=== PATIENT | female | born 1980 | race Caucasian/White ===

== ENCOUNTER 2016-06-13 07:46 | Emergency (ER) | payer BC, OTHER ==
[2016-06-13] MEDS ORDERED: KETOROLAC 30 MG/ML VIAL (J1885) As Ordered ONE (08:30)
[2016-06-13] MEDS ORDERED: ONDANSETRON 4MG/2ML VIAL (J2405) As Ordered ONE (08:30)
[2016-06-13 08:34] LABS: BASO # 0.1 K/mm3 (0.0-0.2); BASO % 1.4 % (0.0-1.0); EOS # 0.5 K/mm3 (0.0-0.50); EOS % 5.4 % (0.0-3.0); LARGE UNSTAINED CELL # 0.1 K/mm3 (0.0-0.4); LARGE UNSTAINED CELL % 1.1 % (0.0-4.0); LYMPH # 1.7 K/mm3 (1.5-4.5); LYMPH % 17.6 % (24.0-44.0); MEAN CORPUSCULAR HEMOGLOBIN 29.3 pg (27.0-33.0); MEAN CORPUSCULAR HGB CONC 33.3 g/dl (32.0-36.5); MEAN CORPUSCULAR VOLUME 88.2 fl (80.0-96.0); MONO # 0.4 K/mm3 (0.0-0.8); MONO % 4.5 % (0.0-5.0); NEUTROPHILS # 6.3 K/mm3 (1.8-7.7); PLATELET COUNT, AUTOMATED 280 k/mm3 (150-450); RED CELL DISTRIBUTION WIDTH 12.9 % (11.5-14.5)
[2016-06-13 08:58] LABS: ALBUMIN 3.5 GM/DL (3.2-5.2); ALBUMIN/GLOBULIN RATIO 0.81 (1.00-1.93); ALKALINE PHOSPHATASE 104 U/L (45-117); ALT/SGPT 73 U/L (12-78); AMYLASE 38 U/L (25-115); ANION GAP 9 MEQ/L (8-16); AST/SGOT 33 U/L (15-37); BILIRUBIN,DIRECT < 0.1 MG/DL (0.0-0.2); BILIRUBIN,TOTAL 0.3 MG/DL (0.2-1.0); BLOOD UREA NITROGEN 8 MG/DL (7-18); CALCIUM LEVEL 8.5 MG/DL (8.5-10.1); CARBON DIOXIDE LEVEL 25 MEQ/L (21-32); CHLORIDE LEVEL 107 MEQ/L (98-107); CREATININE FOR GFR 1.01 MG/DL (0.55-1.02); GLOMERULAR FILTRATION RATE > 60.0 (>60); GLUCOSE, FASTING 185 MG/DL (70-105); POTASSIUM SERUM 4.1 MEQ/L (3.5-5.1); SODIUM LEVEL 141 MEQ/L (136-145); TOTAL PROTEIN 7.8 GM/DL (6.4-8.2)
--- NOTE | 2016-06-13 09:33 | REP ---
Clinical: Left flank pain. Findings: There appears to be mild left hydroureteronephrosis and subtle periureteral stranding without obstructing calculus, but with 2 mm calcification identified in the dependent portion of the bladder (image 137). Findings most likely represent a recently passed ureteral stone and should be correlated with symptoms. The bilateral kidneys, ureters, and bladder are otherwise normal for noncontrast evaluation. Liver, spleen, pancreas, gallbladder, bilateral adrenal glands are normal for noncontrast exam. The enteric system including terminal ileum and appendix are normal. Pelvis demonstrates normal uterus / adnexa. No pelvic fluid or ascites. No obvious adenopathy. Abdominal aorta without aneurysm. No free air. Musculoskeletal structures are intact. Lung bases are clear. Impression: Findings described above suggest recently passed 2 mm left ureteral calculus now identified in the bladder. Signed by Jaden Narayanan MD 06/13/2016 09:25 A
[2016-06-13] MEDS ORDERED: PHENAZOPYRIDINE 100 MG TAB As Ordered ONE (10:05)
[2016-06-13] MEDS ORDERED: TAMSULOSIN 0.4 MG CAP As Ordered ONE (10:05)
[2016-06-13] MEDS ORDERED: CIPROFLOXACIN 500 MG TAB As Ordered ONE (10:05)
--- NOTE | 2016-06-13 10:24 | EDDOCDS ---
Nurse's Notes [facility] Name: Jayne Magana Age: 35 yrs Sex: Female : 1980 Arrival Date: 06/13/2016 Time: 07:46 Bed I4 / M4 Private MD: Ryan Portillo Diagnosis: Urinary tract infection, site not specified;Calculus of kidney-Left; 2mm calculus in bladder at time of CT;Elevated blood glucose level-185 today per CMP results Presentation: 06/13 07:51 Presenting complaint: Patient states: Pt presents with c/o left flank pain radiating dls into lower back since 5am pt states she is under tx for ear infection. Acute neurological deficits are not present. Mechanism of Injury: No Mechanism of Injury. Adult Sepsis Screening: The patient does not have new or worsening altered mentation. Patient's respiratory rate is less than 22. Systolic blood pressure is greater than 100. Patient has a qSOFA score of 0- Negative Sepsis Screen. Suicide/Homicide risk assessment- the patient denies having any suicidal and/or homicidal ideations and does not present with any other emotional, behavioral or mental health complaints. Status: Patient is not a service greeter or dependent. Transition of care: patient was not received from another setting of care. 07:51 Acuity: COLLEEN Level 3 dls 07:51 Method Of Arrival: Walkin/Carried/Asstd dls Triage Assessment: 07:55 General: Appears uncomfortable, Behavior is cooperative. Pain: Pain currently is 8 out dls of 10 on a pain scale. HIV screening NA for this visit Offered previously. 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 Cefuroxime Oral 500 mg twice a day 2. chivo biotics daily - PMHx: Asthma; - PSHx: ; wisdom teeth removed; - Social history: Smoking status: Patient/guardian denies using No barriers to communication noted, The patient speaks fluent Vietnamese. - Family history: Not pertinent. - : The pt / caregiver states he / she is not on anticoagulants. Home medication list is obtained from the patient. - Exposure Risk Screening:: None identified. Screenin:48 Screening information is obtained from the patient. Fall risk: No risks identified. hs1 Assistance ADL's: requires no assistance with activities of daily living. Abuse/DV Screen: The patient / caregiver reports he/she is: not in a situation that causes fear, pain or injury. Nutritional screening: No deficits noted. Advance Directives: There is no active DNR order. home support is adequate. Assessment: 08:43 General: Appears uncomfortable, Behavior is appropriate for age, cooperative. Pain: hs1 Location: posterior aspect of left lateral abdomen, left inguinal area and left iliac crest Pain currently is 8 out of 10 on a pain scale. Quality of pain is described as sharp, shooting. Cardiovascular: No deficits noted. Respiratory: No deficits noted. : Reports reports she is "not emptying all the way". Musculoskeletal: Circulation, motion, and sensation intact Range of motion intact in all extremities. 08:51 General: Pt states that she is not on control and has not been on for a while to hs1 try and have regular periods. Patient has not had a menstrual cycle for a while due to having been on control. . 09:06 General: Appears in no apparent distress, comfortable, Patient states pain decreasing, hs1 "It feels so much better". At this time patient returns from CT scan. No other needs noted. . Pain:. Vital Signs: 07:55 BP 152 / 97; Pulse 83; Resp 22; Temp 97.4(O); Pulse Ox 97% ; Height 5 ft. 2 in. (157.48 dls cm) (R); Pain 8/10; 08:10 Weight 138.35 kg (M); jrd 09:52 BP 122 / 89; Pulse 83; Resp 18; Pulse Ox 100% ; Pain 0/10; hs1 08:10 Body Mass Index 55.78 (138.35 kg, 157.48 cm) jr Vitals: 07:55 Log In Time: June 13, 2016 at 07:44. dls ED Course: 07:46 Patient visited by Myra Kumari. mm15 07:46 Ryan Portillo is Private Physician. mm15 07:46 Patient moved to Waiting mm15 07:53 Triage Initiated dls 07:59 Patient moved to I4 / M4 jrd 08:11 Patient visited by Kavon Chapman, GEN. jrd 08:16 Jewell Rivera PA-C is PHCP. ef1 08:16 James Anderson MD is Attending Physician. ef1 08:16 Patient visited by Jewell Rivera PA-C. ef1 08:20 Inserted saline lock: 20 gauge in left antecubital area and blood collected. The hs1 patient tolerated the procedure well. 08:27 Amylase Sent. hs1 08:27 Basic Metabolic Profile Sent. hs1 08:27 CBC with Diff Sent. hs1 08:27 Lipase Sent. hs1 08:27 Liver Profile Sent. hs1 08:27 Urinalysis Sent. hs1 08:27 Urine Culture Sent. hs1 08:36 Patient visited by Kavon Chapman PCA. jrd 08:49 The patient / caregiver is instructed regarding the plan of care and ED course. hs1 09:08 Patient visited by Shelli Chatterjee RN. hs1 09:33 [facility] Payment Agreement was scanned into [employer] and attached to record. mm15 09:40 CT ABD & PELVIS: No Contrast Returned. EDMS 09:45 Patient visited by Shelli Chatterjee RN. hs1 09:58 Patient visited by Jewell Rivera PA-C. ef1 10:06 Kan Garcia is Referral Physician. ef1 10:06 Ryan Portillo is Referral Physician. ef1 10:23 Discontinued IV lock intact, bleeding controlled, pressure dressing applied, No hs1 redness/swelling at site. No procedures done that require assistance. Administered Medications: 08:50 Drug: NS 0.9% 1000 ml [sodium chloride 0.9 % intravenous solution] Route: IV; Rate: hs1 bolus; Site: left antecubital; 09:52 Follow up: BP 122 / 89; Pulse 83 bpm; Resp 18 bpm; Pulse Ox 100% ; Pain 0/10 Adult; IV hs1 Status: Completed infusion; IV Intake: 1000ml 08:50 Drug: Ondansetron 4 mg [ondansetron HCl 2 mg/mL intravenous solution (2 mL)] Route: hs1 IVP; Site: left antecubital; 09:52 Follow up: Response: Nausea is decreased hs1 08:51 Drug: ketorolac 30 mg [ketorolac 30 mg/mL (1 mL) injection solution (1 mL)] Route: IVP; hs1 Site: left antecubital; 09:52 Follow up: Response: Pain is decreased hs1 10:10 Drug: Ciprofloxacin 500 mg [ciprofloxacin 500 mg tablet (1 tabs)] Route: PO; hs1 10:10 Drug: Phenazopyridine 200 mg [phenazopyridine 100 mg tablet (2 tabs)] Route: PO; hs1 10:11 Drug: Tamsulosin 0.4 mg [tamsulosin 0.4 mg capsule (1 caps)] Route: PO; 1 Point of Care Testing: Urine : 08:35 hCG Reading: Negative; Control Reading: Positive; jrd Ranges: Intake: 09:52 IV: 1000.00ml; Total: 1000.00ml. 1 Order Results: Lab Order: Amylase; SPEC'M 06/13/16 08:24 Test: AMYLASE; Value: 38; Range: 25-115; Units: U/L; Status: F Lab Order: Basic Metabolic Profile; SPEC'M 06/13/16 08:24 Test: GLUCOSE, FASTING; Value: 185; Range: 70-105; Abnormal: Above high normal; Units: MG/DL; Status: F Test: BLOOD UREA NITROGEN; Value: 8; Range: 7-18; Units: MG/DL; Status: F Test: CREATININE FOR GFR; Value: 1.01; Range: 0.55-1.02; Units: MG/DL; Status: F Test: GLOMERULAR FILTRATION RATE; Value: > 60.0; Range: >60; Status: F Test: SODIUM LEVEL; Value: 141; Range: 136-145; Units: MEQ/L; Status: F Test: POTASSIUM SERUM; Value: 4.1; Range: 3.5-5.1; Units: MEQ/L; Status: F Test: CHLORIDE LEVEL; Value: 107; Range: 98-107; Units: MEQ/L; Status: F Test: CARBON DIOXIDE LEVEL; Value: 25; Range: 21-32; Units: MEQ/L; Status: F Test: ANION GAP; Value: 9; Range: 8-16; Units: MEQ/L; Status: F Test: CALCIUM LEVEL; Value: 8.5; Range: 8.5-10.1; Units: MG/DL; Status: F Test Note: ; Units are mL/min/1.73 m2 Chronic Kidney Disease Staging per NKF: Stage I & II GFR >=60 Normal to Mildly Decreased Stage III GFR 30-59 Moderately Decreased Stage IV GFR 15-29 Severely Decreased Stage V GFR <15 Very Little GFR Left ESRD GFR <15 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 Lab Order: CBC with Diff; SPEC'M 06/13/16 08:25 Test: WHITE BLOOD COUNT; Value: 9.0; Range: 4.0-10.0; Units: K/mm3; Status: F Test: RED BLOOD COUNT; Value: 4.89; Range: 4.00-5.40; Units: M/mm3; Status: F Test: HEMOGLOBIN; Value: 14.4; Range: 12.0-16.0; Units: g/dl; Status: F Test: HEMATOCRIT; Value: 43.2; Range: 36.0-47.0; Units: %; Status: F Test: MEAN CORPUSCULAR VOLUME; Value: 88.2; Range: 80.0-96.0; Units: fl; Status: F Test: MEAN CORPUSCULAR HEMOGLOBIN; Value: 29.3; Range: 27.0-33.0; Units: pg; Status: F Test: MEAN CORPUSCULAR HGB CONC; Value: 33.3; Range: 32.0-36.5; Units: g/dl; Status: F Test: RED CELL DISTRIBUTION WIDTH; Value: 12.9; Range: 11.5-14.5; Units: %; Status: F Test: PLATELET COUNT, AUTOMATED; Value: 280; Range: 150-450; Units: k/mm3; Status: F Test: NEUTROPHILS %; Value: 70.0; Range: 36.0-66.0; Abnormal: Above high normal; Units: %; Status: F Test: LYMPH %; Value: 17.6; Range: 24.0-44.0; Abnormal: Below low normal; Units: %; Status: F Test: MONO %; Value: 4.5; Range: 0.0-5.0; Units: %; Status: F Test: EOS %; Value: 5.4; Range: 0.0-3.0; Abnormal: Above high normal; Units: %; Status: F Test: BASO %; Value: 1.4; Range: 0.0-1.0; Abnormal: Above high normal; Units: %; Status: F Test: LARGE UNSTAINED CELL %; Value: 1.1; Range: 0.0-4.0; Units: %; Status: F Test: NEUTROPHILS #; Value: 6.3; Range: 1.8-7.7; Units: K/mm3; Status: F Test: LYMPH #; Value: 1.7; Range: 1.5-4.5; Units: K/mm3; Status: F Test: MONO #; Value: 0.4; Range: 0.0-0.8; Units: K/mm3; Status: F Test: EOS #; Value: 0.5; Range: 0.0-0.50; Units: K/mm3; Status: F Test: BASO #; Value: 0.1; Range: 0.0-0.2; Units: K/mm3; Status: F Test: LARGE UNSTAINED CELL #; Value: 0.1; Range: 0.0-0.4; Units: K/mm3; Status: F Lab Order: Lipase; SPEC'M 06/13/16 08:24 Test: LIPASE; Value: 128; Range: 73-393; Units: U/L; Status: F Lab Order: Liver Profile; SPEC'M 06/13/16 08:24 Test: AST/SGOT; Value: 33; Range: 15-37; Units: U/L; Status: F Test: ALT/SGPT; Value: 73; Range: 12-78; Units: U/L; Status: F Test: ALKALINE PHOSPHATASE; Value: 104; Range: 45-117; Units: U/L; Status: F Test: BILIRUBIN,TOTAL; Value: 0.3; Range: 0.2-1.0; Units: MG/DL; Status: F Test: BILIRUBIN,DIRECT; Value: < 0.1; Range: 0.0-0.2; Units: MG/DL; Status: F Test: TOTAL PROTEIN; Value: 7.8; Range: 6.4-8.2; Units: GM/DL; Status: F Test: ALBUMIN; Value: 3.5; Range: 3.2-5.2; Units: GM/DL; Status: F Test: ALBUMIN/GLOBULIN RATIO; Value: 0.81; Range: 1.00-1.93; Abnormal: Below low normal; Status: F Lab Order: Urinalysis; SPEC'M 06/13/16 08:25 Test: APPEARANCE, URINE; Value: HAZY; Range: CLEAR; Status: F Test: COLOR, URINE; Value: YELLOW; Range: YELLOW; Status: F Test: PH,URINE; Value: 6.0; Range: 5.0-9.0; Units: UNITS; Status: F Test: SPECIFIC GRAVITY URINE AUTO; Value: 1.021; Range: 1.002-1.035; Status: F Test: PROTEIN, URINE AUTO; Value: NEGATIVE; Range: NEGATIVE; Units: mg/dL; Status: F Test: GLUCOSE, URINE (UA) AUTO; Value: NEGATIVE; Range: NEGATIVE; Units: mg/dL; Status: F Test: KETONE, URINE AUTO; Value: NEGATIVE; Range: NEGATIVE; Units: mg/dL; Status: F Test: UROBILINOGEN, URINE AUTO; Value: 0.2; Range: 0.0-2.0; Units: mg/dL; Status: F Test: BILIRUBIN, URINE AUTO; Value: NEGATIVE; Range: NEGATIVE; Status: F Test: NITRITE, URINE AUTO; Value: NEGATIVE; Range: NEGATIVE; Status: F Test: LEUKOCYTE ESTERASE, URINE AUTO; Value: TRACE; Range: NEGATIVE; Abnormal: Above high normal; Status: F Test: BLOOD, URINE BLOOD; Value: NEGATIVE; Range: NEGATIVE; Status: F Test: WBC, URINE AUTO; Value: 4; Range: 0-3; Abnormal: Above high normal; Units: /HPF; Status: F Test: RBC, URINE AUTO; Value: 24; Range: 0-3; Abnormal: Above high normal; Units: /HPF; Status: F Test: BACTERIA, URINE AUTO; Value: NEGATIVE; Range: NEGATIVE; Status: F Test: SQUAMOUS EPITHELIAL CELL UR AU; Value: 2; Range: 0-6; Units: /HPF; Status: F Test: MUCUS, URINE; Value: SMALL; Range: NEGATIVE; Status: F Test: HYALINE CAST, URINE AUTO; Value: 0; Range: 0-1; Units: /LPF; Status: F Radiology Order: CT ABD & PELVIS: No Contrast Test: CT ABD & PELVIS: No Contrast REASON FOR EXAMINATION: Renal colic; Clinical: Left flank pain.; ; Findings:; There appears to be mild left hydroureteronephrosis and subtle periureteral; stranding without obstructing calculus, but with 2 mm calcification identified in; the dependent portion of the bladder (image 137). Findings most likely represent; a recently passed ureteral stone and should be correlated with symptoms. The; bilateral kidneys, ureters, and bladder are otherwise normal for noncontrast; evaluation.; ; Liver, spleen, pancreas, gallbladder, bilateral adrenal glands are normal for; noncontrast exam. The enteric system including terminal ileum and appendix are; normal. Pelvis demonstrates normal uterus / adnexa. No pelvic fluid or ascites.; No obvious adenopathy. Abdominal aorta without aneurysm. No free air.; Musculoskeletal structures are intact. Lung bases are clear.; ; Impression:; Findings described above suggest recently passed 2 mm left ureteral calculus now; identified in the bladder.; ; ; Signed by; Jaden Narayanan MD 06/13/2016 09:25 A; Outcome: 10:06 Discharge ordered by Provider. ef1 10:23 Discharge Assessment: Patient awake, alert and oriented x 3. No cognitive and/or hs1 functional deficits noted. Patient verbalized understanding of disposition instructions. patient administered narcotics - no. The following High Risk Discharge criteria are identified: None. Discharged to home ambulatory. Condition: stable. Discharge instructions given to patient, Instructed on discharge instructions, follow up and referral plans. medication usage, Demonstrated understanding of instructions, medications, Pt was receptive of discharge instructions/ teaching. Prescriptions given X 4. CT Study completed. Property removed. 10:23 Patient left the ED. hs1 Signatures: Dispatcher [employer] EDMS Belem Khalil, RN RN Jewell Avendano PARadhaC PARadhaC ef1 Shelli Chatterjee RN RN hs1 Myra Kumari mm15 Kavon Chapman, SILK BRUSHER SILK BRUSHER jrd MTDD
--- NOTE | 2016-06-13 10:24 | EDDOCDS ---
Physician Documentation [facility] Name: Jayne Magana Age: 35 yrs Sex: Female : 1980 Arrival Date: 06/13/2016 Time: 07:46 Bed I4 / M4 Private MD: Ryan Portillo Disposition: 06/13/16 10:06 Discharged to Home/Self Care. Impression: Urinary tract infection, site not specified, Calculus of kidney - Left; 2mm calculus in bladder at time of CT, Elevated blood glucose level - 185 today per CMP results. - Condition is Stable. - Discharge Instructions: Blood Glucose Monitoring, Adult, Kidney Stones, [id number], Urinary Tract Infection, [id number]. - Prescriptions for Cipro 500 mg Oral Tablet - take 1 tablet by ORAL route every 12 hours; 14 tablet. Pyridium 200 mg Oral Tablet - take 1 tablet by ORAL route every 8 hours for 3 days; 9 tablet. Flomax 0.4 mg Oral Capsule, Sust. Release 24 hr - take 1 capsule by ORAL route once daily 1/2 hour following the same meal each day; 30 capsule. ketorolac 10 mg Oral Tablet - take 1 tablet by ORAL route 3 times per day As needed MDD- 30mg. Up to 5 days total use.; 15 tablet. - Medication Reconciliation, Local Pharmacy Hours form. - Follow up: Kan Garcia; When: Call to arrange an appointment; Reason: Further diagnostic work-up, Recheck today's complaints, Continuance of care. Follow up: Emergency Department; Reason: Worsening of conditions. Follow up: Ryan Portillo; When: 1 - 2 days; Reason: Recheck today's complaints, Continuance of care. - Problem is new. - Symptoms have improved. Historical: - Allergies: PENICILLINS; - Home Meds: 1. Cefuroxime Oral 500 mg twice a day 2. chivo biotics daily - PMHx: Asthma; - PSHx: ; wisdom teeth removed; - Social history: Smoking status: Patient/guardian denies using No barriers to communication noted, The patient speaks fluent Indian. - Family history: Not pertinent. - : The pt / caregiver states he / she is not on anticoagulants. Home medication list is obtained from the patient. - Exposure Risk Screening:: None identified. 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 2 in. (157.48 dls cm) (R); Pain 8/10; 08:10 Weight 138.35 kg / 305.01 lbs (M); jrd 09:52 BP 122 / 89; Pulse 83; Resp 18; Pulse Ox 100% ; Pain 0/10; hs1 08:10 Body Mass Index 55.78 (138.35 kg, 157.48 cm) jrd MDM: 08:17 NS 0.9% 1000 ml IV at bolus once ordered. ef1 08:17 Ondansetron 4 mg IVP once ordered. ef1 08:17 ketorolac 30 mg IVP once ordered. ef1 08:17 IV Saline Lock ordered. ef1 08:17 Undress patient appropriately for examination ordered. ef1 08:17 UCG by Nursing ordered. ef1 08:17 Amylase Ordered. EDMS 08:17 Basic Metabolic Profile Ordered. EDMS 08:17 CBC with Diff Ordered. EDMS 08:18 Lipase Ordered. EDMS 08:18 Liver Profile Ordered. EDMS 08:18 Urinalysis Ordered. EDMS 08:18 Urine Culture Ordered. EDMS 08:18 NOTHING BY MOUTH+DIET ordered. EDMS 08:35 Misc. Nursing Order ordered. ef1 08:40 CT ABD & PELVIS: No Contrast Ordered. EDMS 08:56 CBC with Diff Reviewed. ef1 08:56 Urinalysis Reviewed. ef1 09:18 Basic Metabolic Profile Reviewed. ef1 09:18 Liver Profile Reviewed. ef1 09:18 Amylase Reviewed. ef1 09:18 Lipase Reviewed. ef1 09:26 Financial registration complete. mm15 09:33 [facility] Payment Agreement was scanned into [employer] and attached to record. mm15 09:58 CT ABD & PELVIS: No Contrast Reviewed. ef1 10:03 Ciprofloxacin 500 mg PO once ordered. ef1 10:03 Tamsulosin Extended Release 24 hour Capsule 0.4 mg PO once ordered. ef1 10:03 Phenazopyridine 200 mg PO once ordered. ef1 Point of Care Testing: Urine : 08:35 hCG Reading: Negative; Control Reading: Positive; jrd Ranges: Administered Medications: 08:50 Drug: NS 0.9% 1000 ml [sodium chloride 0.9 % intravenous solution] Route: IV; Rate: hs1 bolus; Site: left antecubital; :52 Follow up: BP 122 / 89; Pulse 83 bpm; Resp 18 bpm; Pulse Ox 100% ; Pain 0/10 Adult; IV hs1 Status: Completed infusion; IV Intake: 1000ml 08:50 Drug: Ondansetron 4 mg [ondansetron HCl 2 mg/mL intravenous solution (2 mL)] Route: hs1 IVP; Site: left antecubital; Follow up: Response: Nausea is decreased hs1 08:51 Drug: ketorolac 30 mg [ketorolac 30 mg/mL (1 mL) injection solution (1 mL)] Route: IVP; hs1 Site: left antecubital; Follow up: Response: Pain is decreased hs1 10:10 Drug: Ciprofloxacin 500 mg [ciprofloxacin 500 mg tablet (1 tabs)] Route: PO; hs1 10:10 Drug: Phenazopyridine 200 mg [phenazopyridine 100 mg tablet (2 tabs)] Route: PO; hs1 10:11 Drug: Tamsulosin 0.4 mg [tamsulosin 0.4 mg capsule (1 caps)] Route: PO; hs1 Signatures: Dispatcher [employer] Belem Teresa, RN RN Jewell Avendano, PA-C PA-C ef1 Shelli Chatterjee RN RN hs1 Myra Kumari mm15 The chart was reviewed and I authenticate all verbal orders and agree with the evaluation and treatment provided.Attachments: 09:33 [facility] Payment Agreement mm15 MTDD
--- NOTE | 2016-06-15 11:24 | EDDOCDS ---
Nurse's Notes [facility] Name: Jayne Magana Age: 35 yrs Sex: Female : 1980 Arrival Date: 06/13/2016 Time: 07:46 Bed I4 / M4 Private MD: Ryan Portillo Diagnosis: Urinary tract infection, site not specified;Calculus of kidney-Left; 2mm calculus in bladder at time of CT;Elevated blood glucose level-185 today per CMP results Presentation: 06/13 07:51 Presenting complaint: Patient states: Pt presents with c/o left flank pain radiating dls into lower back since 5am pt states she is under tx for ear infection. Acute neurological deficits are not present. Mechanism of Injury: No Mechanism of Injury. Adult Sepsis Screening: The patient does not have new or worsening altered mentation. Patient's respiratory rate is less than 22. Systolic blood pressure is greater than 100. Patient has a qSOFA score of 0- Negative Sepsis Screen. Suicide/Homicide risk assessment- the patient denies having any suicidal and/or homicidal ideations and does not present with any other emotional, behavioral or mental health complaints. Status: Patient is not a patient services representative or dependent. Transition of care: patient was not received from another setting of care. 07:51 Acuity: COLLEEN Level 3 dls 07:51 Method Of Arrival: Walkin/Carried/Asstd dls Triage Assessment: 07:55 General: Appears uncomfortable, Behavior is cooperative. Pain: Pain currently is 8 out dls of 10 on a pain scale. HIV screening NA for this visit Offered previously. 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 Cefuroxime Oral 500 mg twice a day 2. chivo biotics daily - PMHx: Asthma; - PSHx: ; wisdom teeth removed; - Social history: Smoking status: Patient/guardian denies using No barriers to communication noted, The patient speaks fluent South Sudanese. - Family history: Not pertinent. - : The pt / caregiver states he / she is not on anticoagulants. Home medication list is obtained from the patient. - Exposure Risk Screening:: None identified. Screenin:48 Screening information is obtained from the patient. Fall risk: No risks identified. hs1 Assistance ADL's: requires no assistance with activities of daily living. Abuse/DV Screen: The patient / caregiver reports he/she is: not in a situation that causes fear, pain or injury. Nutritional screening: No deficits noted. Advance Directives: There is no active DNR order. home support is adequate. Assessment: 08:43 General: Appears uncomfortable, Behavior is appropriate for age, cooperative. Pain: hs1 Location: posterior aspect of left lateral abdomen, left inguinal area and left iliac crest Pain currently is 8 out of 10 on a pain scale. Quality of pain is described as sharp, shooting. Cardiovascular: No deficits noted. Respiratory: No deficits noted. : Reports reports she is "not emptying all the way". Musculoskeletal: Circulation, motion, and sensation intact Range of motion intact in all extremities. 08:51 General: Pt states that she is not on control and has not been on for a while to hs1 try and have regular periods. Patient has not had a menstrual cycle for a while due to having been on control. . 09:06 General: Appears in no apparent distress, comfortable, Patient states pain decreasing, hs1 "It feels so much better". At this time patient returns from CT scan. No other needs noted. . Pain:. Vital Signs: 07:55 BP 152 / 97; Pulse 83; Resp 22; Temp 97.4(O); Pulse Ox 97% ; Height 5 ft. 2 in. (157.48 dls cm) (R); Pain 8/10; 08:10 Weight 138.35 kg (M); jrd 09:52 BP 122 / 89; Pulse 83; Resp 18; Pulse Ox 100% ; Pain 0/10; hs1 08:10 Body Mass Index 55.78 (138.35 kg, 157.48 cm) jr Vitals: 07:55 Log In Time: June 13, 2016 at 07:44. dls ED Course: 07:46 Patient visited by Myra Kumari. mm15 07:46 Ryan Portillo is Private Physician. mm15 07:46 Patient moved to Waiting mm15 07:53 Triage Initiated dls 07:59 Patient moved to I4 / M4 jrd 08:11 Patient visited by Kavon Chapman, GEN. jrd 08:16 Jewell Rivera PA-C is PHCP. ef1 08:16 James Anderson MD is Attending Physician. ef1 08:16 Patient visited by Jewell Rivera PA-C. ef1 08:20 Inserted saline lock: 20 gauge in left antecubital area and blood collected. The hs1 patient tolerated the procedure well. 08:27 Amylase Sent. hs1 08:27 Basic Metabolic Profile Sent. hs1 08:27 CBC with Diff Sent. hs1 08:27 Lipase Sent. hs1 08:27 Liver Profile Sent. hs1 08:27 Urinalysis Sent. hs1 08:27 Urine Culture Sent. hs1 08:36 Patient visited by Kavon Chapman PCA. jrd 08:49 The patient / caregiver is instructed regarding the plan of care and ED course. hs1 09:08 Patient visited by Shelli Chatterjee RN. hs1 09:33 [facility] Payment Agreement was scanned into [employer] and attached to record. mm15 09:40 CT ABD & PELVIS: No Contrast Returned. EDMS 09:45 Patient visited by Shelli Chatterjee RN. hs1 09:58 Patient visited by Jewell Rivera PA-C. ef1 10:06 Kan Garcia is Referral Physician. ef1 10:06 Ryan Portillo is Referral Physician. ef1 10:23 Discontinued IV lock intact, bleeding controlled, pressure dressing applied, No hs1 redness/swelling at site. No procedures done that require assistance. 10:27 Patient name changed from Jayne\\S\\S\\S\\Magana\\S\\ to Jayne\\S\\Susanna\\S\\Magana. EDMS 11:55 T-Sheet-- Draft Copy was scanned into [employer] and attached to record. [facility] 06/14 13:08 Radiology Report was scanned into [employer] and attached to record. gb Administered Medications: 06/13 08:50 Drug: NS 0.9% 1000 ml [sodium chloride 0.9 % intravenous solution] Route: IV; Rate: hs1 bolus; Site: left antecubital; 09:52 Follow up: BP 122 / 89; Pulse 83 bpm; Resp 18 bpm; Pulse Ox 100% ; Pain 0/10 Adult; IV hs1 Status: Completed infusion; IV Intake: 1000ml 08:50 Drug: Ondansetron 4 mg [ondansetron HCl 2 mg/mL intravenous solution (2 mL)] Route: hs1 IVP; Site: left antecubital; 09:52 Follow up: Response: Nausea is decreased hs1 08:51 Drug: ketorolac 30 mg [ketorolac 30 mg/mL (1 mL) injection solution (1 mL)] Route: IVP; hs1 Site: left antecubital; 09:52 Follow up: Response: Pain is decreased hs1 10:10 Drug: Ciprofloxacin 500 mg [ciprofloxacin 500 mg tablet (1 tabs)] Route: PO; hs1 10:10 Drug: Phenazopyridine 200 mg [phenazopyridine 100 mg tablet (2 tabs)] Route: PO; hs1 10:11 Drug: Tamsulosin 0.4 mg [tamsulosin 0.4 mg capsule (1 caps)] Route: PO; 1 Point of Care Testing: Urine : 08:35 hCG Reading: Negative; Control Reading: Positive; jrd Ranges: Intake: 09:52 IV: 1000.00ml; Total: 1000.00ml. [facility] Order Results: Lab Order: Amylase; SPEC'M 06/13/16 08:24 Test: AMYLASE; Value: 38; Range: 25-115; Units: U/L; Status: F Lab Order: Basic Metabolic Profile; SPEC'M 06/13/16 08:24 Test: GLUCOSE, FASTING; Value: 185; Range: 70-105; Abnormal: Above high normal; Units: MG/DL; Status: F Test: BLOOD UREA NITROGEN; Value: 8; Range: 7-18; Units: MG/DL; Status: F Test: CREATININE FOR GFR; Value: 1.01; Range: 0.55-1.02; Units: MG/DL; Status: F Test: GLOMERULAR FILTRATION RATE; Value: > 60.0; Range: >60; Status: F Test: SODIUM LEVEL; Value: 141; Range: 136-145; Units: MEQ/L; Status: F Test: POTASSIUM SERUM; Value: 4.1; Range: 3.5-5.1; Units: MEQ/L; Status: F Test: CHLORIDE LEVEL; Value: 107; Range: 98-107; Units: MEQ/L; Status: F Test: CARBON DIOXIDE LEVEL; Value: 25; Range: 21-32; Units: MEQ/L; Status: F Test: ANION GAP; Value: 9; Range: 8-16; Units: MEQ/L; Status: F Test: CALCIUM LEVEL; Value: 8.5; Range: 8.5-10.1; Units: MG/DL; Status: F Test Note: ; Units are mL/min/1.73 m2 Chronic Kidney Disease Staging per NKF: Stage I & II GFR >=60 Normal to Mildly Decreased Stage III GFR 30-59 Moderately Decreased Stage IV GFR 15-29 Severely Decreased Stage V GFR <15 Very Little GFR Left ESRD GFR <15 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 Lab Order: CBC with Diff; SPEC'M 06/13/16 08:25 Test: WHITE BLOOD COUNT; Value: 9.0; Range: 4.0-10.0; Units: K/mm3; Status: F Test: RED BLOOD COUNT; Value: 4.89; Range: 4.00-5.40; Units: M/mm3; Status: F Test: HEMOGLOBIN; Value: 14.4; Range: 12.0-16.0; Units: g/dl; Status: F Test: HEMATOCRIT; Value: 43.2; Range: 36.0-47.0; Units: %; Status: F Test: MEAN CORPUSCULAR VOLUME; Value: 88.2; Range: 80.0-96.0; Units: fl; Status: F Test: MEAN CORPUSCULAR HEMOGLOBIN; Value: 29.3; Range: 27.0-33.0; Units: pg; Status: F Test: MEAN CORPUSCULAR HGB CONC; Value: 33.3; Range: 32.0-36.5; Units: g/dl; Status: F Test: RED CELL DISTRIBUTION WIDTH; Value: 12.9; Range: 11.5-14.5; Units: %; Status: F Test: PLATELET COUNT, AUTOMATED; Value: 280; Range: 150-450; Units: k/mm3; Status: F Test: NEUTROPHILS %; Value: 70.0; Range: 36.0-66.0; Abnormal: Above high normal; Units: %; Status: F Test: LYMPH %; Value: 17.6; Range: 24.0-44.0; Abnormal: Below low normal; Units: %; Status: F Test: MONO %; Value: 4.5; Range: 0.0-5.0; Units: %; Status: F Test: EOS %; Value: 5.4; Range: 0.0-3.0; Abnormal: Above high normal; Units: %; Status: F Test: BASO %; Value: 1.4; Range: 0.0-1.0; Abnormal: Above high normal; Units: %; Status: F Test: LARGE UNSTAINED CELL %; Value: 1.1; Range: 0.0-4.0; Units: %; Status: F Test: NEUTROPHILS #; Value: 6.3; Range: 1.8-7.7; Units: K/mm3; Status: F Test: LYMPH #; Value: 1.7; Range: 1.5-4.5; Units: K/mm3; Status: F Test: MONO #; Value: 0.4; Range: 0.0-0.8; Units: K/mm3; Status: F Test: EOS #; Value: 0.5; Range: 0.0-0.50; Units: K/mm3; Status: F Test: BASO #; Value: 0.1; Range: 0.0-0.2; Units: K/mm3; Status: F Test: LARGE UNSTAINED CELL #; Value: 0.1; Range: 0.0-0.4; Units: K/mm3; Status: F Lab Order: Lipase; SPEC' 06/13/16 08:24 Test: LIPASE; Value: 128; Range: 73-393; Units: U/L; Status: F Lab Order: Liver Profile; SPEC' 06/13/16 08:24 Test: AST/SGOT; Value: 33; Range: 15-37; Units: U/L; Status: F Test: ALT/SGPT; Value: 73; Range: 12-78; Units: U/L; Status: F Test: ALKALINE PHOSPHATASE; Value: 104; Range: 45-117; Units: U/L; Status: F Test: BILIRUBIN,TOTAL; Value: 0.3; Range: 0.2-1.0; Units: MG/DL; Status: F Test: BILIRUBIN,DIRECT; Value: < 0.1; Range: 0.0-0.2; Units: MG/DL; Status: F Test: TOTAL PROTEIN; Value: 7.8; Range: 6.4-8.2; Units: GM/DL; Status: F Test: ALBUMIN; Value: 3.5; Range: 3.2-5.2; Units: GM/DL; Status: F Test: ALBUMIN/GLOBULIN RATIO; Value: 0.81; Range: 1.00-1.93; Abnormal: Below low normal; Status: F Lab Order: Urinalysis; SPEC'M 06/13/16 08:25 Test: APPEARANCE, URINE; Value: HAZY; Range: CLEAR; Status: F Test: COLOR, URINE; Value: YELLOW; Range: YELLOW; Status: F Test: PH,URINE; Value: 6.0; Range: 5.0-9.0; Units: UNITS; Status: F Test: SPECIFIC GRAVITY URINE AUTO; Value: 1.021; Range: 1.002-1.035; Status: F Test: PROTEIN, URINE AUTO; Value: NEGATIVE; Range: NEGATIVE; Units: mg/dL; Status: F Test: GLUCOSE, URINE (UA) AUTO; Value: NEGATIVE; Range: NEGATIVE; Units: mg/dL; Status: F Test: KETONE, URINE AUTO; Value: NEGATIVE; Range: NEGATIVE; Units: mg/dL; Status: F Test: UROBILINOGEN, URINE AUTO; Value: 0.2; Range: 0.0-2.0; Units: mg/dL; Status: F Test: BILIRUBIN, URINE AUTO; Value: NEGATIVE; Range: NEGATIVE; Status: F Test: NITRITE, URINE AUTO; Value: NEGATIVE; Range: NEGATIVE; Status: F Test: LEUKOCYTE ESTERASE, URINE AUTO; Value: TRACE; Range: NEGATIVE; Abnormal: Above high normal; Status: F Test: BLOOD, URINE BLOOD; Value: NEGATIVE; Range: NEGATIVE; Status: F Test: WBC, URINE AUTO; Value: 4; Range: 0-3; Abnormal: Above high normal; Units: /HPF; Status: F Test: RBC, URINE AUTO; Value: 24; Range: 0-3; Abnormal: Above high normal; Units: /HPF; Status: F Test: BACTERIA, URINE AUTO; Value: NEGATIVE; Range: NEGATIVE; Status: F Test: SQUAMOUS EPITHELIAL CELL UR AU; Value: 2; Range: 0-6; Units: /HPF; Status: F Test: MUCUS, URINE; Value: SMALL; Range: NEGATIVE; Status: F Test: HYALINE CAST, URINE AUTO; Value: 0; Range: 0-1; Units: /LPF; Status: F Lab Order: Urine Culture; SPEC'M 06/13/16 08:25 Test: URINE CULTURE; Value: URINE CULTURE RESULT NO GROWTH CLINICAL SIGNIFICANCE 1 ORGANISM; Status: F Radiology Order: CT ABD & PELVIS: No Contrast Test: CT ABD & PELVIS: No Contrast REASON FOR EXAMINATION: Renal colic; Clinical: Left flank pain.; ; Findings:; There appears to be mild left hydroureteronephrosis and subtle periureteral; stranding without obstructing calculus, but with 2 mm calcification identified in; the dependent portion of the bladder (image 137). Findings most likely represent; a recently passed ureteral stone and should be correlated with symptoms. The; bilateral kidneys, ureters, and bladder are otherwise normal for noncontrast; evaluation.; ; Liver, spleen, pancreas, gallbladder, bilateral adrenal glands are normal for; noncontrast exam. The enteric system including terminal ileum and appendix are; normal. Pelvis demonstrates normal uterus / adnexa. No pelvic fluid or ascites.; No obvious adenopathy. Abdominal aorta without aneurysm. No free air.; Musculoskeletal structures are intact. Lung bases are clear.; ; Impression:; Findings described above suggest recently passed 2 mm left ureteral calculus now; identified in the bladder.; ; ; Signed by; Jaden Narayanan MD 06/13/2016 09:25 A; Outcome: 10:06 Discharge ordered by Provider. ef1 10:23 Discharge Assessment: Patient awake, alert and oriented x 3. No cognitive and/or hs1 functional deficits noted. Patient verbalized understanding of disposition instructions. patient administered narcotics - no. The following High Risk Discharge criteria are identified: None. Discharged to home ambulatory. Condition: stable. Discharge instructions given to patient, Instructed on discharge instructions, follow up and referral plans. medication usage, Demonstrated understanding of instructions, medications, Pt was receptive of discharge instructions/ teaching. Prescriptions given X 4. CT Study completed. Property removed. 10:23 Patient left the ED. hs1 Signatures: Dispatcher [employer] EDMS Belem Khalil RN RN dls Mai Lopez, Reg Reg Jewell Brady, PA-C PA-C ef1 Shelli Chatterjee RN RN hs1 Myra Kumari mm15 Kavon Chapman, ASSOCIATE EDITOR ASSOCIATE EDITOR jrd Jennifer Maldonado Chart Complete MTDD
--- NOTE | 2016-06-15 11:24 | EDDOCDS ---
Physician Documentation [facility] Name: Jayne Magana Age: 35 yrs Sex: Female : 1980 Arrival Date: 06/13/2016 Time: 07:46 Bed I4 / M4 Private MD: Ryan Portillo Disposition: 06/13/16 10:06 Discharged to Home/Self Care. Impression: Urinary tract infection, site not specified, Calculus of kidney - Left; 2mm calculus in bladder at time of CT, Elevated blood glucose level - 185 today per CMP results. - Condition is Stable. - Discharge Instructions: Blood Glucose Monitoring, Adult, Kidney Stones, [id number], Urinary Tract Infection, [id number]. - Prescriptions for Cipro 500 mg Oral Tablet - take 1 tablet by ORAL route every 12 hours; 14 tablet. Pyridium 200 mg Oral Tablet - take 1 tablet by ORAL route every 8 hours for 3 days; 9 tablet. Flomax 0.4 mg Oral Capsule, Sust. Release 24 hr - take 1 capsule by ORAL route once daily 1/2 hour following the same meal each day; 30 capsule. ketorolac 10 mg Oral Tablet - take 1 tablet by ORAL route 3 times per day As needed MDD- 30mg. Up to 5 days total use.; 15 tablet. - Medication Reconciliation, Local Pharmacy Hours form. - Follow up: Kan Garcia; When: Call to arrange an appointment; Reason: Further diagnostic work-up, Recheck today's complaints, Continuance of care. Follow up: Emergency Department; Reason: Worsening of conditions. Follow up: Ryan Portillo; When: 1 - 2 days; Reason: Recheck today's complaints, Continuance of care. - Problem is new. - Symptoms have improved. Historical: - Allergies: PENICILLINS; - Home Meds: 1. Cefuroxime Oral 500 mg twice a day 2. chivo biotics daily - PMHx: Asthma; - PSHx: ; wisdom teeth removed; - Social history: Smoking status: Patient/guardian denies using No barriers to communication noted, The patient speaks fluent Occitan. - Family history: Not pertinent. - : The pt / caregiver states he / she is not on anticoagulants. Home medication list is obtained from the patient. - Exposure Risk Screening:: None identified. 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 2 in. (157.48 dls cm) (R); Pain 8/10; 08:10 Weight 138.35 kg / 305.01 lbs (M); jrd 09:52 BP 122 / 89; Pulse 83; Resp 18; Pulse Ox 100% ; Pain 0/10; hs1 08:10 Body Mass Index 55.78 (138.35 kg, 157.48 cm) jrd MDM: 08:17 NS 0.9% 1000 ml IV at bolus once ordered. ef1 08:17 Ondansetron 4 mg IVP once ordered. ef1 08:17 ketorolac 30 mg IVP once ordered. ef1 08:17 IV Saline Lock ordered. ef1 08:17 Undress patient appropriately for examination ordered. ef1 08:17 UCG by Nursing ordered. ef1 08:17 Amylase Ordered. EDMS 08:17 Basic Metabolic Profile Ordered. EDMS 08:17 CBC with Diff Ordered. EDMS 08:18 Lipase Ordered. EDMS 08:18 Liver Profile Ordered. EDMS 08:18 Urinalysis Ordered. EDMS 08:18 Urine Culture Ordered. EDMS 08:18 NOTHING BY MOUTH+DIET ordered. EDMS 08:35 Misc. Nursing Order ordered. ef1 08:40 CT ABD & PELVIS: No Contrast Ordered. EDMS 08:56 CBC with Diff Reviewed. ef1 08:56 Urinalysis Reviewed. ef1 09:18 Basic Metabolic Profile Reviewed. ef1 09:18 Liver Profile Reviewed. ef1 09:18 Amylase Reviewed. ef1 09:18 Lipase Reviewed. ef1 09:26 Financial registration complete. mm15 09:33 [facility] Payment Agreement was scanned into [employer] and attached to record. mm15 09:58 CT ABD & PELVIS: No Contrast Reviewed. ef1 10:03 Ciprofloxacin 500 mg PO once ordered. ef1 10:03 Tamsulosin Extended Release 24 hour Capsule 0.4 mg PO once ordered. ef1 10:03 Phenazopyridine 200 mg PO once ordered. ef1 11:55 T-Sheet-- Draft Copy was scanned into [employer] and attached to record. [facility] 06/14 13:08 Radiology Report was scanned into [employer] and attached to record. Point of Care Testing: Urine : 06/13 08:35 hCG Reading: Negative; Control Reading: Positive; jrd Ranges: Administered Medications: 08:50 Drug: NS 0.9% 1000 ml [sodium chloride 0.9 % intravenous solution] Route: IV; Rate: hs1 bolus; Site: left antecubital; 09:52 Follow up: BP 122 / 89; Pulse 83 bpm; Resp 18 bpm; Pulse Ox 100% ; Pain 0/10 Adult; IV hs1 Status: Completed infusion; IV Intake: 1000ml 08:50 Drug: Ondansetron 4 mg [ondansetron HCl 2 mg/mL intravenous solution (2 mL)] Route: hs1 IVP; Site: left antecubital; 09:52 Follow up: Response: Nausea is decreased hs1 08:51 Drug: ketorolac 30 mg [ketorolac 30 mg/mL (1 mL) injection solution (1 mL)] Route: IVP; hs1 Site: left antecubital; 09:52 Follow up: Response: Pain is decreased hs1 10:10 Drug: Ciprofloxacin 500 mg [ciprofloxacin 500 mg tablet (1 tabs)] Route: PO; hs1 10:10 Drug: Phenazopyridine 200 mg [phenazopyridine 100 mg tablet (2 tabs)] Route: PO; hs1 10:11 Drug: Tamsulosin 0.4 mg [tamsulosin 0.4 mg capsule (1 caps)] Route: PO; hs1 Signatures: Dispatcher [employer] Belem Teresa RN RN dls Barnhardt, Gloria, Yoseph Reg Jewell Brady, PA-C PA-C ef1 Shelli Chatterjee RN RN hs1 Myra Kumari mm15 Jennifer Maldonado [facility] The chart was reviewed and I authenticate all verbal orders and agree with the evaluation and treatment provided.Attachments: 09:33 [facility] Payment Agreement mm15 11:55 T-Sheet-- Draft Copy [facility] Chart Complete MTDD
--- NOTE | 2016-06-15 11:24 | EDDOCDS ---
Physician Documentation [facility] Name: Jayne Magana Age: 35 yrs Sex: Female : 1980 Arrival Date: 06/13/2016 Time: 07:46 Bed I4 / M4 Private MD: Ryan Portillo Disposition: 06/13/16 10:06 Discharged to Home/Self Care. Impression: Urinary tract infection, site not specified, Calculus of kidney - Left; 2mm calculus in bladder at time of CT, Elevated blood glucose level - 185 today per CMP results. - Condition is Stable. - Discharge Instructions: Blood Glucose Monitoring, Adult, Kidney Stones, [id number], Urinary Tract Infection, [id number]. - Prescriptions for Cipro 500 mg Oral Tablet - take 1 tablet by ORAL route every 12 hours; 14 tablet. Pyridium 200 mg Oral Tablet - take 1 tablet by ORAL route every 8 hours for 3 days; 9 tablet. Flomax 0.4 mg Oral Capsule, Sust. Release 24 hr - take 1 capsule by ORAL route once daily 1/2 hour following the same meal each day; 30 capsule. ketorolac 10 mg Oral Tablet - take 1 tablet by ORAL route 3 times per day As needed MDD- 30mg. Up to 5 days total use.; 15 tablet. - Medication Reconciliation, Local Pharmacy Hours form. - Follow up: Kan Garcia; When: Call to arrange an appointment; Reason: Further diagnostic work-up, Recheck today's complaints, Continuance of care. Follow up: Emergency Department; Reason: Worsening of conditions. Follow up: Ryan Portillo; When: 1 - 2 days; Reason: Recheck today's complaints, Continuance of care. - Problem is new. - Symptoms have improved. Historical: - Allergies: PENICILLINS; - Home Meds: 1. Cefuroxime Oral 500 mg twice a day 2. chivo biotics daily - PMHx: Asthma; - PSHx: ; wisdom teeth removed; - Social history: Smoking status: Patient/guardian denies using No barriers to communication noted, The patient speaks fluent Maori. - Family history: Not pertinent. - : The pt / caregiver states he / she is not on anticoagulants. Home medication list is obtained from the patient. - Exposure Risk Screening:: None identified. 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 2 in. (157.48 dls cm) (R); Pain 8/10; 08:10 Weight 138.35 kg / 305.01 lbs (M); jrd 09:52 BP 122 / 89; Pulse 83; Resp 18; Pulse Ox 100% ; Pain 0/10; hs1 08:10 Body Mass Index 55.78 (138.35 kg, 157.48 cm) jrd MDM: 08:17 NS 0.9% 1000 ml IV at bolus once ordered. ef1 08:17 Ondansetron 4 mg IVP once ordered. ef1 08:17 ketorolac 30 mg IVP once ordered. ef1 08:17 IV Saline Lock ordered. ef1 08:17 Undress patient appropriately for examination ordered. ef1 08:17 UCG by Nursing ordered. ef1 08:17 Amylase Ordered. EDMS 08:17 Basic Metabolic Profile Ordered. EDMS 08:17 CBC with Diff Ordered. EDMS 08:18 Lipase Ordered. EDMS 08:18 Liver Profile Ordered. EDMS 08:18 Urinalysis Ordered. EDMS 08:18 Urine Culture Ordered. EDMS 08:18 NOTHING BY MOUTH+DIET ordered. EDMS 08:35 Misc. Nursing Order ordered. ef1 08:40 CT ABD & PELVIS: No Contrast Ordered. EDMS 08:56 CBC with Diff Reviewed. ef1 08:56 Urinalysis Reviewed. ef1 09:18 Basic Metabolic Profile Reviewed. ef1 09:18 Liver Profile Reviewed. ef1 09:18 Amylase Reviewed. ef1 09:18 Lipase Reviewed. ef1 09:26 Financial registration complete. mm15 09:33 [facility] Payment Agreement was scanned into [employer] and attached to record. mm15 09:58 CT ABD & PELVIS: No Contrast Reviewed. ef1 10:03 Ciprofloxacin 500 mg PO once ordered. ef1 10:03 Tamsulosin Extended Release 24 hour Capsule 0.4 mg PO once ordered. ef1 10:03 Phenazopyridine 200 mg PO once ordered. ef1 11:55 T-Sheet-- Draft Copy was scanned into [employer] and attached to record. [facility] 06/14 13:08 Radiology Report was scanned into [employer] and attached to record. Point of Care Testing: Urine : 06/13 08:35 hCG Reading: Negative; Control Reading: Positive; jrd Ranges: Administered Medications: 08:50 Drug: NS 0.9% 1000 ml [sodium chloride 0.9 % intravenous solution] Route: IV; Rate: hs1 bolus; Site: left antecubital; 09:52 Follow up: BP 122 / 89; Pulse 83 bpm; Resp 18 bpm; Pulse Ox 100% ; Pain 0/10 Adult; IV hs1 Status: Completed infusion; IV Intake: 1000ml 08:50 Drug: Ondansetron 4 mg [ondansetron HCl 2 mg/mL intravenous solution (2 mL)] Route: hs1 IVP; Site: left antecubital; 09:52 Follow up: Response: Nausea is decreased hs1 08:51 Drug: ketorolac 30 mg [ketorolac 30 mg/mL (1 mL) injection solution (1 mL)] Route: IVP; hs1 Site: left antecubital; 09:52 Follow up: Response: Pain is decreased hs1 10:10 Drug: Ciprofloxacin 500 mg [ciprofloxacin 500 mg tablet (1 tabs)] Route: PO; hs1 10:10 Drug: Phenazopyridine 200 mg [phenazopyridine 100 mg tablet (2 tabs)] Route: PO; hs1 10:11 Drug: Tamsulosin 0.4 mg [tamsulosin 0.4 mg capsule (1 caps)] Route: PO; hs1 Signatures: Dispatcher [employer] [place] Teresa RN RN dls Barnhardt, Gloria, Yoseph Reg Jewell Brady, PA-C PA-C ef1 Shelli Chatterjee RN RN hs1 Myra Kumari mm15 Jennifer Maldonado [facility] The chart was reviewed and I authenticate all verbal orders and agree with the evaluation and treatment provided.Attachments: 09:33 [facility] Payment Agreement mm15 11:55 T-Sheet-- Draft Copy [facility] Chart Complete MTDD
== END 2016-06-13 10:23 | disposition home or self-care (01) ==
LOC: M ED 07:46
DX: N20.1 Calculus of ureter (principal); N39.0 Urinary tract infection, site not specified; R73.9 Hyperglycemia, unspecified; J45.909 Unspecified asthma, uncomplicated; Z88.0 Allergy status to penicillin
CPT/HCPCS: 36415; 74176; 80048; 80076; 81001; 81025; 82150; 83690; 85025; 87086; 96361; 96374; 96375; 99284; J1885; J2405

== ENCOUNTER → 2016-07-21 | Outpatient (REF) | payer OTHER | LOC: M SMT 16:50 | PROVIDERS: ATTEND Nurse Practitioner Women's Health | DX: N20.1 Calculus of ureter (principal) ==

== ENCOUNTER → 2016-07-24 | Outpatient (CLI) | payer OTHER ==
[2016-07-24 18:03] LABS: ALBUMIN 3.6 GM/DL (3.2-5.2); ALKALINE PHOSPHATASE 95 U/L (45-117); ALT/SGPT 54 U/L (12-78); ANION GAP 11 MEQ/L (8-16); AST/SGOT 28 U/L (15-37); BILIRUBIN,TOTAL 0.3 MG/DL (0.2-1.0); BLOOD UREA NITROGEN 11 MG/DL (7-18); CALCIUM LEVEL 8.6 MG/DL (8.5-10.1); CARBON DIOXIDE LEVEL 24 MEQ/L (21-32); CHLORIDE LEVEL 105 MEQ/L (98-107); CREATININE FOR GFR 0.88 MG/DL (0.55-1.02); FREE T4 0.85 NG/DL (0.76-1.46); GLOMERULAR FILTRATION RATE > 60.0 (>60); GLUCOSE, FASTING 138 MG/DL (70-105); POTASSIUM SERUM 4.4 MEQ/L (3.5-5.1); SODIUM LEVEL 140 MEQ/L (136-145); TOTAL PROTEIN 7.2 GM/DL (6.4-8.2)
[2016-07-25 17:15] LABS: CONTROL LINE INT CTR LINE PRESENT
[2016-07-25 17:16] LABS: HIV SCRN NEGATIVE (NEGATIVE)
[2016-07-25 17:17] LABS: HIV SCRN1 NEGATIVE (NEGATIVE)
== END ==
LOC: M WUC 09:28
PROVIDERS: ATTEND Family Medicine
DX: R73.9 Hyperglycemia, unspecified (principal); Z11.3 Encounter for screening for infections with a predominantly sexual mode of transmission; E66.01 Morbid (severe) obesity due to excess calories

== ENCOUNTER → 2017-01-20 | Outpatient (CLI) | payer OTHER ==
[2017-01-20 16:47] LABS: ALBUMIN 3.5 GM/DL (3.2-5.2); ALKALINE PHOSPHATASE 67 U/L (45-117); ALT/SGPT 40 U/L (12-78); ANION GAP 9 MEQ/L (8-16); AST/SGOT 27 U/L (15-37); BILIRUBIN,TOTAL 0.2 MG/DL (0.2-1.0); BLOOD UREA NITROGEN 9 MG/DL (7-18); CALCIUM LEVEL 8.7 MG/DL (8.5-10.1); CARBON DIOXIDE LEVEL 29 MEQ/L (21-32); CHLORIDE LEVEL 104 MEQ/L (98-107); CREATININE FOR GFR 0.81 MG/DL (0.55-1.02); GLOMERULAR FILTRATION RATE > 60.0 (>60); GLUCOSE, FASTING 85 MG/DL (70-105); POTASSIUM SERUM 4.7 MEQ/L (3.5-5.1); SODIUM LEVEL 142 MEQ/L (136-145); TOTAL PROTEIN 7.4 GM/DL (6.4-8.2)
== END ==
LOC: M WUC 11:38
PROVIDERS: ATTEND Family Medicine
DX: E11.9 Type 2 diabetes mellitus without complications (principal)

== ENCOUNTER → 2017-02-01 | Outpatient (CLI) | payer OTHER ==
--- NOTE | 2017-02-01 16:45 | REP ---
Clinical: Nodule by palpation. Technique: Real time ruano scale and color evaluation using linear high frequency transducer. Findings: Directed ultrasound examination of the right neck in the supraclavicular region at the site of palpable mass demonstrates a 6 x 5 x 6 mm complex, well-circumscribed cystic ovoid structure with increased through transmission. Findings likely represent small sebaceous cyst and correlation is recommended. Impression: Ultrasound examination suggest small sebaceous cyst and correlation is recommended. Signed by Jaden Narayanan MD 02/01/2017 04:37 P
== END ==
LOC: M RAD 16:12
PROVIDERS: ATTEND Family Medicine
DX: D48.1 Neoplasm of uncertain behavior of connective and other soft tissue (principal)

== ENCOUNTER → 2017-04-12 | Outpatient (REF) | payer OTHER ==
[~2017-04-12] MED LIST: BACITAB PO; K-TA1TAB PO; PROAAER10 INH; SLOWTAB2 PO; TRI-1TAB5 PO; TRUL0.5I SC; VANC1CAP7 PO; ZYRTTAB8 PO
== END ==
LOC: M LAB REF 13:29
PROVIDERS: ATTEND Family Medicine
DX: R19.7 Diarrhea, unspecified (principal)

== ENCOUNTER 2017-04-13 00:39 | Inpatient (IN) | payer OTHER ==
[~2017-04-13] VITALS: Ht 157.5 cm; Wt 130.9 kg
[2017-04-13] MEDS ORDERED: PROAAER10 INH ×2 (01:05→04:30)
[2017-04-13] MEDS ORDERED: TRUL0.5I SC ×2 (01:05→04:30)
[2017-04-13] MEDS ORDERED: ZYRTTAB8 PO ×2 (01:05→04:30)
[2017-04-13] MEDS ORDERED: NS 1,000 ML IV ONE ×2 (01:45→04:15)
[2017-04-13] MEDS ORDERED: VANCOMYCIN ORAL SOL 250MG/5ML ORAL SYRINGE PO ONE (02:00)
[2017-04-13 02:32] LABS: BASO # 0.1 10^3/uL (0.0-0.2); BASO % 0.2 % (0.0-1.0); EOS # 0.6 10^3/uL (0.0-0.50); EOS % 2.2 % (0.0-3.0); IMMATURE GRANULOCYTE % 1.3 % (0-0); LYMPH # 1.7 10^3/uL (1.5-4.5); LYMPH % 6.3 % (24.0-44.0); MEAN CORPUSCULAR HEMOGLOBIN 29.2 pg (27.0-33.0); MEAN CORPUSCULAR HGB CONC 33.1 g/dl (32.0-36.5); MEAN CORPUSCULAR VOLUME 88.3 fl (80.0-96.0); MONO # 1.2 10^3/uL (0.0-0.8); MONO % 4.5 % (0.0-5.0); NEUTROPHILS # 23.2 10^3/uL (1.8-7.7); NEUTROPHILS % 85.5 % (36.0-66.0); PLATELET COUNT, AUTOMATED 335 10^3/uL (150-450); WHITE BLOOD COUNT 27.1 10^3/uL (4.0-10.0)
[2017-04-13 02:37] LABS: CONTROL LINE HCG INT CTR LINE PRESENT
[2017-04-13 02:43] LABS: ALBUMIN 3.2 GM/DL (3.2-5.2); ALBUMIN/GLOBULIN RATIO 0.71 (1.00-1.93); ALKALINE PHOSPHATASE 67 U/L (45-117); ALT/SGPT 20 U/L (12-78); ANION GAP 11 MEQ/L (8-16); AST/SGOT 9 U/L (7-37); BILIRUBIN,DIRECT < 0.1 MG/DL (0.0-0.2); BILIRUBIN,TOTAL 0.3 MG/DL (0.2-1.0); BLOOD UREA NITROGEN 8 MG/DL (7-18); CALCIUM LEVEL 8.2 MG/DL (8.5-10.1); CARBON DIOXIDE LEVEL 26 MEQ/L (21-32); CHLORIDE LEVEL 102 MEQ/L (98-107); GLOMERULAR FILTRATION RATE > 60.0 (>60); GLUCOSE, FASTING 133 MG/DL (70-105); POTASSIUM SERUM 3.3 MEQ/L (3.5-5.1); SODIUM LEVEL 139 MEQ/L (136-145); TOTAL PROTEIN 7.7 GM/DL (6.4-8.2)
[2017-04-13] MEDS ORDERED: ISOVUE-370 76% 100ML VIAL (Q9967) As Ordered ONE (03:07)
[2017-04-13] MEDS ORDERED: ONDANSETRON 4MG/2ML VIAL (J2405) IV ONE (03:30)
[2017-04-13] MEDS: MORPHINE 4 MG/ML 1ML SYRINGE IV PRN ×2 (03:43→04:27)
--- NOTE | 2017-04-13 04:00 | REPUSA ---
CLINICAL HISTORY: Abdominal pain. TECHNIQUE: Multiple axial, sagittal and coronal CT images were obtained through the abdomen and pelvi s after administration of oral and intravenous contrast material. COMMENTS: Comparison to prior exam performed on 06/13/2016. Fluid-filled distended stomach. Diffusely thickened proximal small bowel. 2.6 cm right ovarian cyst. The liver is moderately enlarged with decreased attenuation without mass or defect. There is no intra or extrahepatic biliary ductal dilatation. The spleen is normal. The gallbladder is within normal li mits. The pancreas is of normal contour and attenuation characteristics. There is no evidence of adre nal mass. Both kidneys demonstrate prompt and equal nephrograms. The kidneys are normal in size, shape and conf iguration. There is no evidence of renal or ureteral mass. No renal or ureteral calculi are identifie d. There is no hydroureter or hydronephrosis. No evidence for appendicitis. No evidence for small or large bowel obstruction. There is no evidence of abdominal ascites or lymphadenopathy. There is no evidence of intrinsic or extrinsic bladder mass. There is no pelvic ascites or lymphadeno chantelle. Images of the lung bases show no evidence of pleural or parenchymal mass. There are no pleural effusi ons. The bony structures are free of lytic or blastic lesions. Multilevel degenerative changes are seen in volving the thoracolumbar spine. Scattered calcifications are seen involving the aorta and major bran ches compatible with atherosclerosis. IMPRESSION: Enteritis. Gastroparesis. Right ovarian cyst. Findings not present on prior exam. Thank you for your kind referral of this patient.
[2017-04-13] MEDS ORDERED: metroNIDAZOLE 500 MG in APPROPRIATE DILUENT 1 EA IV ONE (04:15)
[2017-04-13] MEDS ORDERED: TRI-1TAB5 PO (04:30)
[2017-04-13] MEDS: NS 1,000 ML IV SCH ×2 (04:34→14:40)
[2017-04-13] MEDS ORDERED: GLUCOSE 4 GM CHEW TABLET PO PRN (04:45)
[2017-04-13] MEDS ORDERED: ONDANSETRON 4MG/2ML VIAL (J2405) IV PRN (04:45)
[2017-04-13] MEDS ORDERED: DEXTROSE 50% 50 ML SYRINGE IV PRN (04:45)
[2017-04-13] MEDS ORDERED: SODIUM CHLORIDE 0.9% 1000 ML IV ONE (04:45)
[2017-04-13] MEDS ORDERED: GLUCAGON FOR INJ 1 MG VIAL (J1610) SC PRN (04:45)
--- NOTE | 2017-04-13 06:02 | HPE ---
DATE OF ADMISSION: 04/13/2017 PRIMARY CARE PHYSICIAN: Dr. Corcoran. Patient comes in with a chief complaint of diarrhea since Tuesday. Patient notes that as of Tuesday, she began to have significant diarrhea which has continued up through Tuesday when she had episode of nausea and vomiting. She went to her primary care doctor who took samples. Patient was found to have Clostridium difficile. Patient comes in to ED for intractable diarrhea. At this point, patient no longer vomiting. Some mild nausea, however. Patient also complains of abdominal pain secondary to what she believes as per the patient is the diarrhea. Patient with other significant medical history including diabetes. Patient denies significant family history. Patient with apparent allergies to Penicillin. Patient with no previous history of Clostridium diarrhea. Patient denies any recent antibiotic use. Patient denies any recent hospitalizations. REVIEW OF SYSTEMS: On complete 10 system review, patient denies other acute problems beyond what was noted in the history of present illness. PHYSICAL EXAMINATION: Patient is awake, alert and oriented times three. Vital signs are temperature 98.0, initial pulse 104 now at 87, blood pressure 134/75, pulse oximetry 98% on room air. Patient is awake, alert and oriented times three, resting when I came in. Some mild distress secondary to patient's abdominal discomfort. Patient's head is normocephalic, atraumatic. Patient with tender obese abdomen. Good inspiratory and expiratory effort. No wheezes, rhonchi or rales at this time. S1, S2, poor auscultation most probably secondary to body habitus. Patient with good movement on four extremities. Patient ambulatory. Patient able to sit up on her own power. No obvious deformities of the back. Patient with grossly symmetric and good hearing. Patient with vision in all four quadrants. LABORATORY RESULTS: Patient's WBC 27.1, hemoglobin and hemoglobin 16.2/49.0. Chemistry shows sodium 139, elevated lactic acid 2.4, potassium 3.3, chloride 102, carbon dioxide 26, anion gap 11, BUN and creatinine is 8/0.9. Glomerular filtration rate over 60. Fasting glucose is 133. Calcium mildly decreased at 8.2. IMAGING: Abdomen and pelvic CT report shows enteritis, gastroparesis, right ovarian cyst. Findings not present in prior exam. Thank you for your kind referral of this patient. ASSESSMENT AND PLAN: Patient is a 36-year-old female with previous medical history of diabetes, comes in with episodes of diarrhea, intractable since Tuesday, found to be Clostridium positive from samples taken at patient's primary care doctor. PLAN: Patient getting oral vancomycin, however, given the gastroparesis, some concern with the ability for the vancomycin to appropriately reach the colon at this time. Therefore will add IV Flagyl in agreement with the ED doctor. If patient does not improve, may consider rectal vancomycin, however, that is not usually given as a first option. Patient receiving IV fluid bolus maintenance to be continued thereafter. Will followup lactic acid. Given the severity of the patient's condition, ie: Sepsis and low calcium and potassium most likely secondary to patient's continued diarrhea, I suspect patient will likely be here for greater than two midnights. Patient is able to eat. Will continue giving patient diet at this time, however if she begins to throw up again, will have to modify diet. Diet now: Diabetic diet. For patient's diabetes mellitus, will hold patient's home medications and start patient on insulin sliding scale for now. Deep venous thrombosis (DVT) prophylaxis at this time is not indicated. Patient is ambulatory, young without significant risk factors. Gastrointestinal (GI) prophylaxis. Patient will get IV PPIs with the understanding that PPIs do lead to an increased risk of Clostridium difficile. Nevertheless, patient does have nausea and vomiting and risk versus benefit at this time is in favor of PPIs as she is already under treatment for Clostridium difficile. Nausea and vomiting. Continue Zofran as needed. I first seen and examined the patient 04/13/2017.
[2017-04-13] MEDS: VANCOMYCIN ORAL SOL 250MG/5ML ORAL SYRINGE PO SCH ×3 (06:08→17:55)
[2017-04-13] MEDS: ALBUTEROL SULFATE 2.5 MG/0.5 ML INH NEB SOLN INH SCH ×5 (07:04→23:13)
[2017-04-13 09:15] VITALS: BP 128/89
[2017-04-13] MEDS: HumaLOG INSULIN (NovoLOG) PER UNIT SC SCH ×4 (09:53→20:24)
[2017-04-13] MEDS: PANTOPRAZOLE 20 MG TAB PO SCH (09:54)
[2017-04-13] MEDS: metroNIDAZOLE 500 MG in APPROPRIATE DILUENT 1 EA IV SCH ×3 (10:50→22:43)
[2017-04-13 14:00] VITALS: BP 135/88
--- NOTE | 2017-04-13 14:18 | ECGEPIP ---
Stationary ECG Study 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
[2017-04-13] MEDS ORDERED: PERCOCET 5MG/325MG TAB PO PRN (15:00)
[2017-04-13 22:00] VITALS: BP 135/84
[2017-04-14] MEDS: VANCOMYCIN ORAL SOL 250MG/5ML ORAL SYRINGE PO SCH ×5 (00:11→23:35)
[2017-04-14] MEDS: NS 1,000 ML IV SCH (00:34)
[2017-04-14] MEDS: metroNIDAZOLE 500 MG in APPROPRIATE DILUENT 1 EA IV SCH ×4 (04:07→22:20)
[2017-04-14] MEDS: ALBUTEROL SULFATE 2.5 MG/0.5 ML INH NEB SOLN INH SCH ×5 (04:18→23:20)
[2017-04-14 06:00] VITALS: BP 135/75
[2017-04-14 06:36] LABS: BASO % 0.3 % (0.0-1.0); EOS # 1.2 10^3/uL (0.0-0.50); EOS % 7.7 % (0.0-3.0); IMMATURE GRANULOCYTE % 2.2 % (0-0); LYMPH # 2.4 10^3/uL (1.5-4.5); LYMPH % 15.1 % (24.0-44.0); MEAN CORPUSCULAR HEMOGLOBIN 29.1 pg (27.0-33.0); MEAN CORPUSCULAR HGB CONC 32.1 g/dl (32.0-36.5); MEAN CORPUSCULAR VOLUME 90.7 fl (80.0-96.0); MONO # 0.9 10^3/uL (0.0-0.8); MONO % 5.6 % (0.0-5.0); NEUTROPHILS % 69.1 % (36.0-66.0); PLATELET COUNT, AUTOMATED 269 10^3/uL (150-450); RED CELL DISTRIBUTION WIDTH 12.6 % (11.5-14.5); WHITE BLOOD COUNT 15.9 10^3/uL (4.0-10.0)
[2017-04-14 06:57] LABS: ANION GAP 7 MEQ/L (8-16); BLOOD UREA NITROGEN 5 MG/DL (7-18); CALCIUM LEVEL 7.2 MG/DL (8.5-10.1); CARBON DIOXIDE LEVEL 26 MEQ/L (21-32); CHLORIDE LEVEL 110 MEQ/L (98-107); CREATININE FOR GFR 1.08 MG/DL (0.55-1.02); GLOMERULAR FILTRATION RATE > 60.0 (>60); GLUCOSE, FASTING 152 MG/DL (70-105); POTASSIUM SERUM 3.2 MEQ/L (3.5-5.1); SODIUM LEVEL 143 MEQ/L (136-145)
[2017-04-14] MEDS ORDERED: SODIUM CHLORIDE NASAL 0.65% SPRAY BTL (OCEAN) ONE (07:15)
[2017-04-14] MEDS ORDERED: NS 1,000 ML IV ONE ×2 (07:15→12:00)
[2017-04-14] MEDS ORDERED: CETIRIZINE (ZyrTEC) 10 MG TAB PO ONE (07:15)
[2017-04-14] MEDS ORDERED: MAG SULF 1GM/100ML (MAG RUN) 1 GM in APPROPRIATE DILUENT 1 EA IV ONE (08:00)
[2017-04-14] MEDS ORDERED: POTASSIUM CHLORIDE 10 MEQ SR TABLET PO ONE (08:00)
[2017-04-14] MEDS ORDERED: VANC1CAP7 PO (08:06)
[2017-04-14] MEDS: PANTOPRAZOLE 20 MG TAB PO SCH (08:27)
[2017-04-14] MEDS: HumaLOG INSULIN (NovoLOG) PER UNIT SC SCH ×4 (08:29→21:00)
[2017-04-14] MEDS: POTASSIUM CHLORIDE 10 MEQ SR TABLET PO SCH ×2 (09:00→22:21)
--- NOTE | 2017-04-14 11:59 | IPN ---
DATE OF VISIT: 04/14/2017 Patient complains of diffuse abdominal pain but tolerating her diet without nausea or vomiting. Patient has had diarrhea, about three times yesterday and once this morning at 3 a.m. She denies any fever or chills, chest pain, pressure or tightness. No shortness of breath, palpitations, lightheadedness or generalized weakness. Patient also complains for allergic rhinitis and some nasal congestion. Temperature 98.2, pulse 103, respiratory rate 16, blood pressure 135/75, 95% on room air, and generally patient is awake, alert, oriented times three, answering questions appropriately. Lungs are clear to auscultation. No wheezing, rales or rhonchi. Heart: S1, S2. Sinus rhythm with episodes of sinus tachycardia. Abdomen is soft, slightly tender epigastric region, lower quadrant. Extremities: No cyanosis, clubbing or any pitting edema. Laboratory data, imaging studies have been reviewed. ASSESSMENT AND PLAN: This is a 36-year-old female, no recent contact with Clostridium (C) difficile patients and not on any recent antibiotics or recent travel, does not work in hospitals, presented to the emergency room with diarrhea, found to have C difficile positive colitis. Current issues are as follows: 1. C difficile colitis. Currently receiving oral vancomycin, intravenous (IV) Flagyl due to previous complaints of nausea, vomiting. Will advance diet slowly and discontinue IV Flagyl. Patient is able to keep oral medications down. 2. Type 2 diabetes. Consistent carbohydrate diet. Sliding scale. 3. Allergic rhinitis. Continue on Zyrtec. 4. Nasal congestion. Flonase as needed and nasal spray. 5. Acute kidney injury. Continue with IV fluid hydration. 6. Electrolyte abnormalities with low potassium due to persistent diarrhea. Replenish with potassium. DISPOSITION: May discharge home in the morning.
[2017-04-14 14:00] VITALS: BP 140/62
[2017-04-14 18:43] LABS: ANION GAP 7 MEQ/L (8-16); BLOOD UREA NITROGEN 6 MG/DL (7-18); CARBON DIOXIDE LEVEL 26 MEQ/L (21-32); CHLORIDE LEVEL 113 MEQ/L (98-107); CREATININE FOR GFR 0.76 MG/DL (0.55-1.02); GLOMERULAR FILTRATION RATE > 60.0 (>60); GLUCOSE, FASTING 96 MG/DL (70-105); MAGNESIUM LEVEL 1.4 MG/DL (1.8-2.4); POTASSIUM SERUM 3.5 MEQ/L (3.5-5.1); SODIUM LEVEL 146 MEQ/L (136-145)
[2017-04-14 22:00] VITALS: BP 127/73
[2017-04-15] MEDS: ALBUTEROL SULFATE 2.5 MG/0.5 ML INH NEB SOLN INH SCH ×4 (04:00→15:21)
[2017-04-15] MEDS: metroNIDAZOLE 500 MG in APPROPRIATE DILUENT 1 EA IV SCH ×4 (05:34→21:46)
[2017-04-15] MEDS: VANCOMYCIN ORAL SOL 250MG/5ML ORAL SYRINGE PO SCH ×4 (05:35→23:56)
[2017-04-15 06:00] VITALS: BP 126/75
[2017-04-15 06:26] LABS: BASO % 0.3 % (0.0-1.0); EOS # 2.1 10^3/uL (0.0-0.50); IMMATURE GRANULOCYTE % 4.2 % (0-0); LYMPH # 2.3 10^3/uL (1.5-4.5); LYMPH % 15.7 % (24.0-44.0); MEAN CORPUSCULAR HEMOGLOBIN 29.4 pg (27.0-33.0); MEAN CORPUSCULAR HGB CONC 32.7 g/dl (32.0-36.5); MEAN CORPUSCULAR VOLUME 89.8 fl (80.0-96.0); MONO # 0.6 10^3/uL (0.0-0.8); MONO % 4.2 % (0.0-5.0); NEUTROPHILS # 9.2 10^3/uL (1.8-7.7); NEUTROPHILS % 61.6 % (36.0-66.0); PLATELET COUNT, AUTOMATED 263 10^3/uL (150-450); RED CELL DISTRIBUTION WIDTH 12.6 % (11.5-14.5); WHITE BLOOD COUNT 14.9 10^3/uL (4.0-10.0)
[2017-04-15] MEDS: MAG SULF 1GM/100ML (MAG RUN) 1 GM in APPROPRIATE DILUENT 1 EA IV SCH ×2 (06:40→08:22)
[2017-04-15 06:46] LABS: ANION GAP 7 MEQ/L (8-16); BLOOD UREA NITROGEN 4 MG/DL (7-18); CALCIUM LEVEL 7.4 MG/DL (8.5-10.1); CARBON DIOXIDE LEVEL 25 MEQ/L (21-32); CHLORIDE LEVEL 112 MEQ/L (98-107); CREATININE FOR GFR 0.76 MG/DL (0.55-1.02); GLOMERULAR FILTRATION RATE > 60.0 (>60); GLUCOSE, FASTING 111 MG/DL (70-105); MAGNESIUM LEVEL 1.5 MG/DL (1.8-2.4); POTASSIUM SERUM 3.5 MEQ/L (3.5-5.1); SODIUM LEVEL 144 MEQ/L (136-145)
[2017-04-15] MEDS ORDERED: POTASSIUM CHLORIDE 10 MEQ SR TABLET PO ONE (07:00)
[2017-04-15] MEDS: PANTOPRAZOLE 20 MG TAB PO SCH (08:21)
[2017-04-15] MEDS: HumaLOG INSULIN (NovoLOG) PER UNIT SC SCH ×4 (08:22→21:00)
[2017-04-15] MEDS ORDERED: BACITAB PO (08:36)
[2017-04-15] MEDS: POTASSIUM CHLORIDE 10 MEQ SR TABLET PO SCH ×2 (08:42→21:45)
[2017-04-15] MEDS: LACTOBACILLUS ACIDOPHILUS CAP (BACID) PO SCH ×3 (09:40→18:00)
[2017-04-15] MEDS: KCL 40MEQ in NS 1000ML 1,000 ML IV SCH ×2 (09:40→21:46)
--- NOTE | 2017-04-15 11:29 | IPN ---
DATE: 04/15/2017 The patient and examined at the bedside. The chart has been reviewed. The patient is tolerating her diet but complains of five loose bowel movements yesterday despite vancomycin and IV Flagyl. She is tolerating her diet, however, with no nausea or vomiting. No change in the abdomen. No abdominal distention. No fevers or chills. Over night, she did have an episode of dysuria yesterday but the urgency, frequency as well as dysuria have resolved today. Urinalysis (UA) was sent. VITAL SIGNS: Temperature 98.7, pulse 97, respiratory rate 18, blood pressure 126/75, 98% on room air. GENERALLY: Patient is awake, alert, oriented times three. Answers questions appropriately. LUNGS: Clear to auscultation. No wheezes, rales or rhonchi. HEART: S1, S2. Sinus rhythm. ABDOMEN: Soft. Slightly tender bilateral lower quadrants. No rebound or guarding. Positive bowel sounds. No hepatosplenomegaly. EXTREMITIES: No pitting edema. LABORATORY DATA: White count 14.9, hemoglobin 12.4, hematocrit 37.9, platelet count 263. Sodium 144, potassium 3.5, chloride 112, bicarbonate 25, BUN 4, creatinine 0.76, glucose 111, magnesium 1.5. Two sets of blood cultures are negative. CT abdomen and pelvis shows right ovarian cyst, gastroparesis and neuritis. ASSESSMENT/PLAN: This is a 36-year-old female with no past medical history. No recent contact with C difficile patient. No recent antibiotics used who presented to the emergency room with profuse diarrhea and was found to have C difficile colitis. CURRENT ISSUES: 1. C difficile colitis, community acquire: The patient is currently receiving oral vancomycin and IV Flagyl due to complaints of nausea and vomiting. The patient has been advanced in her diet. 2. Type 2 diabetes: Placed on consistent carbohydrate diet, sliding scale. 3. Allergic rhinitis on Zyrtec. 4. Nasal congestion: Flonase as needed nasal spray. 5. Acute kidney injury: Resolved with fluid hydration. 6. Electrolyte abnormality secondary to diarrhea. Potassium and magnesium has been repleted. DISPOSITION: Due to increase in the amount of diarrhea yesterday, the patient will be kept in the hospital due to severe electrolyte imbalances.
[2017-04-15] MEDS ORDERED: ALBUTEROL SULFATE 2.5 MG/0.5 ML INH NEB SOLN INH PRN (12:00)
[2017-04-15 14:00] VITALS: BP 130/82
[2017-04-15 22:00] VITALS: BP 139/85
[2017-04-16] MEDS: metroNIDAZOLE 500 MG in APPROPRIATE DILUENT 1 EA IV SCH ×2 (05:17→11:00)
[2017-04-16] MEDS: VANCOMYCIN ORAL SOL 250MG/5ML ORAL SYRINGE PO SCH ×2 (05:17→12:00)
[2017-04-16 05:46] LABS: BASO # 0.1 10^3/uL (0.0-0.2); BASO % 0.7 % (0.0-1.0); EOS # 3.3 10^3/uL (0.0-0.50); EOS % 19.7 % (0.0-3.0); IMMATURE GRANULOCYTE % 4.5 % (0-0); LYMPH # 2.4 10^3/uL (1.5-4.5); LYMPH % 14.4 % (24.0-44.0); MEAN CORPUSCULAR HEMOGLOBIN 29.3 pg (27.0-33.0); MEAN CORPUSCULAR HGB CONC 32.6 g/dl (32.0-36.5); MONO # 0.6 10^3/uL (0.0-0.8); MONO % 3.7 % (0.0-5.0); NEUTROPHILS # 9.5 10^3/uL (1.8-7.7); PLATELET COUNT, AUTOMATED 273 10^3/uL (150-450); RED CELL DISTRIBUTION WIDTH 12.5 % (11.5-14.5); WHITE BLOOD COUNT 16.6 10^3/uL (4.0-10.0)
[2017-04-16 06:00] VITALS: BP 139/74
[2017-04-16 06:00] LABS: ANION GAP 7 MEQ/L (8-16); BLOOD UREA NITROGEN 3 MG/DL (7-18); CALCIUM LEVEL 8.4 MG/DL (8.5-10.1); CARBON DIOXIDE LEVEL 25 MEQ/L (21-32); CHLORIDE LEVEL 109 MEQ/L (98-107); CREATININE FOR GFR 0.66 MG/DL (0.55-1.02); GLOMERULAR FILTRATION RATE > 60.0 (>60); GLUCOSE, FASTING 110 MG/DL (70-105); SODIUM LEVEL 141 MEQ/L (136-145)
[2017-04-16 06:17] LABS: POTASSIUM SERUM 4.3 MEQ/L (3.5-5.1)
[2017-04-16] MEDS ORDERED: MAG SULF 1GM/100ML (MAG RUN) 1 GM in APPROPRIATE DILUENT 1 EA IV ONE ×2 (06:45→08:30)
[2017-04-16 07:07] LABS: MAGNESIUM LEVEL 1.7 MG/DL (1.8-2.4)
[2017-04-16] MEDS: HumaLOG INSULIN (NovoLOG) PER UNIT SC SCH ×2 (07:30→12:00)
[2017-04-16] MEDS ORDERED: K-TA1TAB PO (09:23)
[2017-04-16] MEDS ORDERED: SLOWTAB2 PO (09:23)
[2017-04-16] MEDS: LACTOBACILLUS ACIDOPHILUS CAP (BACID) PO SCH ×2 (10:14→12:30)
[2017-04-16] MEDS: POTASSIUM CHLORIDE 10 MEQ SR TABLET PO SCH (10:15)
[2017-04-16] MEDS: PANTOPRAZOLE 20 MG TAB PO SCH (10:15)
[2017-04-16 14:00] VITALS: BP 131/78
--- NOTE | 2017-04-16 16:26 | DSES ---
DATE OF ADMISSION: 04/13/2017 DATE OF DISCHARGE: 04/16/2017 PRIMARY CARE PROVIDER: Dr. Corcoran PRIMARY DISCHARGE DIAGNOSIS: Clostridium (C) difficile colitis. DISCHARGE MEDICATIONS: - vancomycin 250 mg by mouth every 6 hours - Bacid one tablet by mouth twice a day - potassium 20 mEq by mouth twice a day - magnesium one tablet by mouth twice a day FOLLOWUP ISSUES: The patient is to have a repeat basic metabolic panel and magnesium on 04/18/2017 to be sent to Dr. Corcoran. 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 No recent antibiotic use or exposure to C diff. The patient was found to have a white count of 27,000. CT of the abdomen and pelvis shows enteritis, gastroparesis, right ovarian cyst. Due to severe nausea, the patient was given intravenous Flagyl and oral vancomycin with improvement in white count from 27,000 to 15,000 on discharge. Her bowel movements have decreased from five to three to zero. She is able to tolerate a diet, which was fully advanced. Glucose levels were 96 to 152. She had episodes of low magnesium and low potassium, which were supplemented. The patient is discharged in stable condition to followup with her primary care provider as an outpatient. LABORATORY DATA ON DISCHARGE: White count 15.6, hemoglobin 12, hematocrit 39, platelet count 273. Sodium 141, potassium 4.2, chloride 109, bicarbonate 25, BUN 3, creatinine 0.66, glucose of 110, magnesium of 1.7. Two sets of blood cultures with no growth after 72 hours. On 04/13/2017, C diff positive. Imaging studies on 04/13/2017: CT of the abdomen and pelvis with enteritis, gastroparesis, right ovarian cyst. Time spent on discharge 30 minutes.
== END 2017-04-16 15:30 | disposition home or self-care (01) | DRG 372 ==
LOC: M ED 00:39 → M ED INP 04:34 → M MS5PR 08:50
PROVIDERS: ADMIT Internal Medicine; ATTEND General Practice
DX: A04.72 Enterocolitis due to Clostridium difficile, not specified as recurrent (principal); N17.9 Acute kidney failure, unspecified; Z79.899 Other long term (current) drug therapy; E11.9 Type 2 diabetes mellitus without complications; N83.201 Unspecified ovarian cyst, right side; J30.9 Allergic rhinitis, unspecified; E87.6 Hypokalemia

== ENCOUNTER → 2017-04-18 | Outpatient (CLI) | payer OTHER ==
[2017-04-18 15:01] LABS: ANION GAP 8 MEQ/L (8-16); BLOOD UREA NITROGEN 9 MG/DL (7-18); CALCIUM LEVEL 9.3 MG/DL (8.5-10.1); CARBON DIOXIDE LEVEL 30 MEQ/L (21-32); CHLORIDE LEVEL 100 MEQ/L (98-107); CREATININE FOR GFR 0.87 MG/DL (0.55-1.02); GLOMERULAR FILTRATION RATE > 60.0 (>60); GLUCOSE, FASTING 93 MG/DL (70-105); MAGNESIUM LEVEL 2.3 MG/DL (1.8-2.4); SODIUM LEVEL 138 MEQ/L (136-145)
[2017-04-18 15:06] LABS: POTASSIUM SERUM 5.2 MEQ/L (3.5-5.1)
== END ==
LOC: M SMT 10:40
PROVIDERS: ATTEND General Practice
DX: E87.6 Hypokalemia (principal); E83.42 Hypomagnesemia; A04.72 Enterocolitis due to Clostridium difficile, not specified as recurrent

== ENCOUNTER → 2017-04-18 | Outpatient (CLI) | payer OTHER ==
[2017-04-18 14:37] LABS: BASO # 0.2 10^3/uL (0.0-0.2); BASO % 0.9 % (0.0-1.0); EOS # 3.7 10^3/uL (0.0-0.50); EOS % 18.9 % (0.0-3.0); LYMPH # 3.2 10^3/uL (1.5-4.5); LYMPH % 16.2 % (24.0-44.0); MEAN CORPUSCULAR HEMOGLOBIN 29.1 pg (27.0-33.0); MEAN CORPUSCULAR HGB CONC 33.1 g/dl (32.0-36.5); MEAN CORPUSCULAR VOLUME 88.1 fl (80.0-96.0); MONO # 0.9 10^3/uL (0.0-0.8); MONO % 4.6 % (0.0-5.0); NEUTROPHILS % 55.4 % (36.0-66.0); PLATELET COUNT, AUTOMATED 351 10^3/uL (150-450); RED CELL DISTRIBUTION WIDTH 12.3 % (11.5-14.5); WHITE BLOOD COUNT 19.8 10^3/uL (4.0-10.0)
[2017-04-18 14:53] LABS: ALBUMIN 3.2 GM/DL (3.2-5.2); ALBUMIN/GLOBULIN RATIO 0.84 (1.00-1.93); ALKALINE PHOSPHATASE 78 U/L (45-117); ALT/SGPT 27 U/L (12-78); ANION GAP 8 MEQ/L (8-16); AST/SGOT 17 U/L (7-37); BILIRUBIN,TOTAL 0.2 MG/DL (0.2-1.0); BLOOD UREA NITROGEN 9 MG/DL (7-18); CALCIUM LEVEL 9.3 MG/DL (8.5-10.1); CARBON DIOXIDE LEVEL 27 MEQ/L (21-32); CHLORIDE LEVEL 102 MEQ/L (98-107); CHOLESTEROL LEVEL 185 MG/DL (<200); CREATININE FOR GFR 0.84 MG/DL (0.55-1.02); GLOMERULAR FILTRATION RATE > 60.0 (>60); GLUCOSE, FASTING 97 MG/DL (70-105); POTASSIUM SERUM 4.9 MEQ/L (3.5-5.1); SODIUM LEVEL 137 MEQ/L (136-145); TRIGLYCERIDES LEVEL 142 MG/DL (<150)
== END ==
LOC: M SMT 10:44
PROVIDERS: ATTEND Family Medicine
DX: E11.9 Type 2 diabetes mellitus without complications (principal)

== ENCOUNTER → 2017-05-29 | Outpatient (REF) | payer OTHER | LOC: M LAB REF 11:01 | DX: J06.9 Acute upper respiratory infection, unspecified (principal); R19.7 Diarrhea, unspecified ==

== ENCOUNTER 2017-05-31 09:48 | Inpatient (IN) | payer OTHER ==
[2017-05-31] MEDS: ONDANSETRON 4MG/2ML VIAL (J2405) IV (10:30)
[2017-05-31] MEDS: NS 1,000 ML IV (10:30)
[2017-05-31] MEDS: MORPHINE 2 MG/ML 1ML SYRINGE IV (11:01)
[2017-05-31 11:09] LABS: BASO # 0.1 10^3/uL (0.0-0.2); BASO % 0.3 % (0.0-1.0); EOS % 0.1 % (0.0-3.0); HEMATOCRIT 47.5 % (36.0-47.0); HEMOGLOBIN 15.8 g/dl (12.0-16.0); IMMATURE GRANULOCYTE # 0.1 10^3/uL (0-0); IMMATURE GRANULOCYTE % 0.5 % (0-0); LYMPH # 0.3 10^3/uL (1.5-4.5); LYMPH % 1.9 % (24.0-44.0); MEAN CORPUSCULAR HEMOGLOBIN 29.5 pg (27.0-33.0); MEAN CORPUSCULAR HGB CONC 33.3 g/dl (32.0-36.5); MEAN CORPUSCULAR VOLUME 88.6 fl (80.0-96.0); MONO # 0.3 10^3/uL (0.0-0.8); MONO % 1.8 % (0.0-5.0); NEUTROPHILS # 16.8 10^3/uL (1.8-7.7); NEUTROPHILS % 95.4 % (36.0-66.0); PLATELET COUNT, AUTOMATED 367 10^3/uL (150-450); RED BLOOD COUNT 5.36 10^6/uL (4.00-5.40); RED CELL DISTRIBUTION WIDTH 12.1 % (11.5-14.5); WHITE BLOOD COUNT 17.6 10^3/uL (4.0-10.0)
[2017-05-31 11:14] LABS: KETONE, URINE AUTO RFX TRACE mg/dL (NEGATIVE); MUCUS, URINE RFX SMALL (NEGATIVE); NITRITE, URINE AUTO RFX NEGATIVE (NEGATIVE); RBC, URINE AUTO RFX 6 /HPF (0-3); SPECIFIC GRAVITY UR AUTO RFX 1.023 (1.002-1.035); SQUAM EPITHELIAL CELL UR AURFX 2 /HPF (0-6); WBC, URINE AUTO RFX 4 /HPF (0-3)
[2017-05-31 11:15] LABS: LEUKOCYTE ESTERASE UR AUTO RFX TRACE (NEGATIVE)
[2017-05-31 11:27] LABS: ALBUMIN 3.5 GM/DL (3.2-5.2); ALKALINE PHOSPHATASE 67 U/L (45-117); ALT/SGPT 24 U/L (12-78); ANION GAP 9 MEQ/L (8-16); AST/SGOT 18 U/L (7-37); BILIRUBIN,DIRECT < 0.1 MG/DL (0.0-0.2); BILIRUBIN,TOTAL 0.4 MG/DL (0.2-1.0); BLOOD UREA NITROGEN 14 MG/DL (7-18); CARBON DIOXIDE LEVEL 25 MEQ/L (21-32); CHLORIDE LEVEL 107 MEQ/L (98-107); CREATININE FOR GFR 0.91 MG/DL (0.55-1.02); GLOMERULAR FILTRATION RATE > 60.0 (>60); GLUCOSE, FASTING 133 MG/DL (70-105); LIPASE 276 U/L (73-393); POTASSIUM SERUM 4.3 MEQ/L (3.5-5.1); SODIUM LEVEL 141 MEQ/L (136-145); TOTAL PROTEIN 7.9 GM/DL (6.4-8.2)
[2017-05-31] MEDS ORDERED: ISOVUE-370 76% 100ML VIAL (Q9967) As Ordered (11:36)
[2017-05-31] MEDS: HEPARIN SOD (PORCINE) 5000 UNITS/ML VIAL SC ×2 (14:00→21:58)
[2017-05-31] MEDS ORDERED: IPRATROPIUM 0.5MG/ALBUTEROL 2.5MG INH SOL UD 3ML (DUONEB)(J7620) NEB (15:30)
[2017-05-31] MEDS ORDERED: ONDANSETRON 4MG/2ML VIAL (J2405) IV (15:30)
[2017-05-31] MEDS: KCL 20MEQ in NS 1000ML 1,000 ML IV (16:00)
[2017-05-31] MEDS: LACTOBACILLUS ACIDOPHILUS CAP (BACID) PO ×2 (16:00→21:58)
[2017-05-31] MEDS: VANCOMYCIN ORAL SOL 250MG/5ML ORAL SYRINGE PO (17:54)
[2017-06-01] MEDS: VANCOMYCIN ORAL SOL 250MG/5ML ORAL SYRINGE PO ×2 (00:45→06:31)
[2017-06-01] MEDS: KCL 20MEQ in NS 1000ML 1,000 ML IV ×3 (00:45→16:11)
[2017-06-01] MEDS: HEPARIN SOD (PORCINE) 5000 UNITS/ML VIAL SC ×3 (06:31→21:02)
[2017-06-01 07:04] LABS: HEMATOCRIT 43.5 % (36.0-47.0); HEMOGLOBIN 14.3 g/dl (12.0-16.0); MEAN CORPUSCULAR HEMOGLOBIN 29.1 pg (27.0-33.0); MEAN CORPUSCULAR HGB CONC 32.9 g/dl (32.0-36.5); MEAN CORPUSCULAR VOLUME 88.4 fl (80.0-96.0); PLATELET COUNT, AUTOMATED 323 10^3/uL (150-450); RED BLOOD COUNT 4.92 10^6/uL (4.00-5.40); RED CELL DISTRIBUTION WIDTH 12.2 % (11.5-14.5); WHITE BLOOD COUNT 8.3 10^3/uL (4.0-10.0)
[2017-06-01 07:21] LABS: ANION GAP 8 MEQ/L (8-16); BLOOD UREA NITROGEN 8 MG/DL (7-18); CARBON DIOXIDE LEVEL 22 MEQ/L (21-32); CHLORIDE LEVEL 109 MEQ/L (98-107); CREATININE FOR GFR 0.92 MG/DL (0.55-1.02); GLOMERULAR FILTRATION RATE > 60.0 (>60); GLUCOSE, FASTING 127 MG/DL (70-105); POTASSIUM SERUM 4.1 MEQ/L (3.5-5.1); SODIUM LEVEL 139 MEQ/L (136-145)
[2017-06-01] MEDS: LACTOBACILLUS ACIDOPHILUS CAP (BACID) PO ×3 (08:37→21:01)
[2017-06-01] MEDS: IBUPROFEN 400 MG TAB PO (21:01)
[2017-06-02] MEDS: KCL 20MEQ in NS 1000ML 1,000 ML IV ×2 (00:49→08:00)
[2017-06-02] MEDS: HEPARIN SOD (PORCINE) 5000 UNITS/ML VIAL SC (05:36)
[2017-06-02 07:33] LABS: HEMATOCRIT 41.4 % (36.0-47.0); HEMOGLOBIN 13.5 g/dl (12.0-16.0); MEAN CORPUSCULAR HGB CONC 32.6 g/dl (32.0-36.5); PLATELET COUNT, AUTOMATED 264 10^3/uL (150-450); RED BLOOD COUNT 4.65 10^6/uL (4.00-5.40); RED CELL DISTRIBUTION WIDTH 12.2 % (11.5-14.5)
[2017-06-02 07:54] LABS: ANION GAP 7 MEQ/L (8-16); BLOOD UREA NITROGEN 5 MG/DL (7-18); CARBON DIOXIDE LEVEL 25 MEQ/L (21-32); CHLORIDE LEVEL 108 MEQ/L (98-107); CREATININE FOR GFR 0.67 MG/DL (0.55-1.02); GLOMERULAR FILTRATION RATE > 60.0 (>60); GLUCOSE, FASTING 105 MG/DL (70-105); SODIUM LEVEL 140 MEQ/L (136-145)
[2017-06-02] MEDS: LACTOBACILLUS ACIDOPHILUS CAP (BACID) PO (09:44)
== END 2017-06-02 10:35 | disposition home or self-care (01) | DRG 392 ==
LOC: M PED 06-01 14:55 → M ED 09:48 → M ED INP 15:30
DX: A08.4 Viral intestinal infection, unspecified (principal); J45.909 Unspecified asthma, uncomplicated; R73.03 Prediabetes; Z79.899 Other long term (current) drug therapy; Z88.0 Allergy status to penicillin

== ENCOUNTER 2017-07-21 00:42 | Emergency (ER) | payer OTHER ==
[2017-07-21 03:45] LABS: BASO % 0.2 % (0.0-1.0); EOS # 0.4 10^3/uL (0.0-0.50); EOS % 2.4 % (0.0-3.0); HEMATOCRIT 43.6 % (36.0-47.0); HEMOGLOBIN 14.3 g/dl (12.0-16.0); IMMATURE GRANULOCYTE % 0.3 % (0-3.0); LYMPH # 1.3 10^3/uL (1.5-4.5); LYMPH % 8.2 % (24.0-44.0); MEAN CORPUSCULAR HEMOGLOBIN 28.5 pg (27.0-33.0); MEAN CORPUSCULAR HGB CONC 32.8 g/dl (32.0-36.5); MEAN CORPUSCULAR VOLUME 86.9 fl (80.0-96.0); MONO # 0.6 10^3/uL (0.0-0.8); MONO % 3.8 % (0.0-5.0); NEUTROPHILS # 13.4 10^3/uL (1.8-7.7); NEUTROPHILS % 85.1 % (36.0-66.0); PLATELET COUNT, AUTOMATED 350 10^3/uL (150-450); RED BLOOD COUNT 5.02 10^6/uL (4.00-5.40); RED CELL DISTRIBUTION WIDTH 12.1 % (11.5-14.5); WHITE BLOOD COUNT 15.7 10^3/uL (4.0-10.0)
[2017-07-21 04:07] LABS: ALBUMIN 3.5 GM/DL (3.2-5.2); ALKALINE PHOSPHATASE 61 U/L (45-117); ALT/SGPT 34 U/L (12-78); ANION GAP 9 MEQ/L (8-16); AST/SGOT 17 U/L (7-37); BILIRUBIN,DIRECT < 0.1 MG/DL (0.0-0.2); BILIRUBIN,TOTAL 0.3 MG/DL (0.2-1.0); BLOOD UREA NITROGEN 11 MG/DL (7-18); CALCIUM LEVEL 8.7 MG/DL (8.5-10.1); CARBON DIOXIDE LEVEL 26 MEQ/L (21-32); CHLORIDE LEVEL 105 MEQ/L (98-107); CREATININE FOR GFR 0.84 MG/DL (0.55-1.30); GLOMERULAR FILTRATION RATE > 60.0 (>60); GLUCOSE, FASTING 119 MG/DL (70-100); LIPASE 242 U/L (73-393); POTASSIUM SERUM 4.3 MEQ/L (3.5-5.1); SODIUM LEVEL 140 MEQ/L (136-145); TOTAL PROTEIN 7.4 GM/DL (6.4-8.2)
== END 2017-07-21 06:25 | disposition home or self-care (01) ==
LOC: M ED 00:42
DX: R19.7 Diarrhea, unspecified (principal); E11.9 Type 2 diabetes mellitus without complications; J45.909 Unspecified asthma, uncomplicated; Z79.899 Other long term (current) drug therapy; Z86.19 Personal history of other infectious and parasitic diseases; Z88.0 Allergy status to penicillin
CPT/HCPCS: 83690

== ENCOUNTER → 2017-07-31 | Outpatient (CLI) | payer OTHER ==
[2017-07-31 18:14] LABS: ANION GAP 7 MEQ/L (8-16); BLOOD UREA NITROGEN 8 MG/DL (7-18); CALCIUM LEVEL 8.8 MG/DL (8.5-10.1); CARBON DIOXIDE LEVEL 29 MEQ/L (21-32); CHLORIDE LEVEL 104 MEQ/L (98-107); CREATININE FOR GFR 0.76 MG/DL (0.55-1.30); GLOMERULAR FILTRATION RATE > 60.0 (>60); GLUCOSE, FASTING 105 MG/DL (70-100); POTASSIUM SERUM 4.6 MEQ/L (3.5-5.1); SODIUM LEVEL 140 MEQ/L (136-145)
[2017-07-31 18:16] LABS: ESTIMATED AVERAGE GLUCOSE 128 MG/DL (60-110); HEMOGLOBIN A1c 6.1 %
== END ==
LOC: M WUC 10:10
DX: E11.9 Type 2 diabetes mellitus without complications (principal)

== ENCOUNTER → 2017-10-30 | Outpatient (CLI) | payer OTHER ==
[2017-10-30 18:04] LABS: ALBUMIN 3.5 GM/DL (3.2-5.2); ALBUMIN/GLOBULIN RATIO 0.95 (1.00-1.93); ALKALINE PHOSPHATASE 82 U/L (45-117); ALT/SGPT 70 U/L (12-78); ANION GAP 7 MEQ/L (8-16); AST/SGOT 47 U/L (7-37); BILIRUBIN,TOTAL 0.3 MG/DL (0.2-1.0); BLOOD UREA NITROGEN 7 MG/DL (7-18); CALCIUM LEVEL 8.6 MG/DL (8.5-10.1); CARBON DIOXIDE LEVEL 28 MEQ/L (21-32); CHLORIDE LEVEL 108 MEQ/L (98-107); CREATININE FOR GFR 0.91 MG/DL (0.55-1.30); GLOMERULAR FILTRATION RATE > 60.0 (>60); GLUCOSE, FASTING 89 MG/DL (70-100); POTASSIUM SERUM 4.6 MEQ/L (3.5-5.1); SODIUM LEVEL 143 MEQ/L (136-145); TOTAL PROTEIN 7.2 GM/DL (6.4-8.2)
[2017-10-30 18:16] LABS: MALB URINE SIEMENS 11.9 MG/L; MAU/CREAT RATIO 6.3 MCG/MG (0.0-30.0)
[2017-10-30 19:15] LABS: ESTIMATED AVERAGE GLUCOSE 123 MG/DL (60-110); HEMOGLOBIN A1c 5.9 %
== END ==
LOC: M WUC 10:57
DX: E11.9 Type 2 diabetes mellitus without complications (principal)
CPT/HCPCS: 80053

== ENCOUNTER → 2018-01-21 | Outpatient (CLI) | payer OTHER ==
[2018-01-21 17:08] LABS: ESTIMATED AVERAGE GLUCOSE 126 MG/DL (60-110)
[2018-01-21 17:20] LABS: ANION GAP 9 MEQ/L (8-16); BLOOD UREA NITROGEN 12 MG/DL (7-18); CALCIUM LEVEL 9.1 MG/DL (8.5-10.1); CARBON DIOXIDE LEVEL 28 MEQ/L (21-32); CHLORIDE LEVEL 102 MEQ/L (98-107); CREATININE FOR GFR 0.83 MG/DL (0.55-1.30); FREE T4 0.99 NG/DL (0.76-1.46); GLOMERULAR FILTRATION RATE > 60.0 (>60); GLUCOSE, FASTING 99 MG/DL (70-100); POTASSIUM SERUM 4.9 MEQ/L (3.5-5.1); SODIUM LEVEL 139 MEQ/L (136-145)
== END ==
LOC: M WUC 14:05
DX: E11.9 Type 2 diabetes mellitus without complications (principal)
CPT/HCPCS: 84443

== ENCOUNTER → 2018-04-23 | Outpatient (CLI) | payer OTHER ==
[2018-04-23 17:21] LABS: ALBUMIN 3.2 GM/DL (3.2-5.2); ALKALINE PHOSPHATASE 59 U/L (45-117); ALT/SGPT 32 U/L (12-78); ANION GAP 8 MEQ/L (8-16); AST/SGOT 18 U/L (7-37); BILIRUBIN,TOTAL 0.2 MG/DL (0.2-1.0); BLOOD UREA NITROGEN 10 MG/DL (7-18); CALCIUM LEVEL 8.9 MG/DL (8.5-10.1); CARBON DIOXIDE LEVEL 26 MEQ/L (21-32); CHLORIDE LEVEL 106 MEQ/L (98-107); CREATININE FOR GFR 0.94 MG/DL (0.55-1.30); GLOMERULAR FILTRATION RATE > 60.0 (>60); GLUCOSE, FASTING 109 MG/DL (70-100); POTASSIUM SERUM 4.5 MEQ/L (3.5-5.1); SODIUM LEVEL 140 MEQ/L (136-145); TOTAL PROTEIN 7.2 GM/DL (6.4-8.2)
[2018-04-23 17:48] LABS: ESTIMATED AVERAGE GLUCOSE 134 MG/DL (60-110); HEMOGLOBIN A1c 6.3 %
== END ==
LOC: M WUC 09:47
DX: E11.9 Type 2 diabetes mellitus without complications (principal)
CPT/HCPCS: 80053

== ENCOUNTER → 2018-07-22 | Outpatient (CLI) | payer OTHER ==
[~2018-07-22] MED LIST changes: +VANC125C2 PO; +ZYRT10CA5 PO
[2018-07-22 19:11] LABS: ALBUMIN 3.7 GM/DL (3.2-5.2); ALT/SGPT 73 U/L (12-78); BILIRUBIN,TOTAL 0.4 MG/DL (0.2-1.0); BLOOD UREA NITROGEN 10 MG/DL (7-18); CALCIUM LEVEL 8.7 MG/DL (8.5-10.1); CARBON DIOXIDE LEVEL 26 MEQ/L (21-32); CHLORIDE LEVEL 105 MEQ/L (98-107); CREATININE FOR GFR 0.93 MG/DL (0.55-1.30); GLOMERULAR FILTRATION RATE > 60.0 (>60); GLUCOSE, FASTING 99 MG/DL (70-100); POTASSIUM SERUM 4.4 MEQ/L (3.5-5.1); SODIUM LEVEL 140 MEQ/L (136-145); TOTAL PROTEIN 7.6 GM/DL (6.4-8.2)
[2018-07-22 19:35] LABS: HEMOGLOBIN A1c 6.1 %
[2018-07-22 19:50] LABS: MALB URINE SIEMENS 22.9 MG/L; MAU/CREAT RATIO 7.2 MCG/MG (0.0-30.0)
== END ==
LOC: M WUC 10:28
PROVIDERS: ATTEND Physician Assistant
DX: E11.9 Type 2 diabetes mellitus without complications (principal)

== ENCOUNTER → 2018-08-22 | Outpatient (REF) | payer OTHER ==
[2018-08-22 20:54] LABS: CHLAMYDIA DNA AMPLIFICATION NEGATIVE (NEGATIVE); GC DNA AMPLIFICATION NEGATIVE (NEGATIVE)
== END ==
LOC: M LAB REF 17:32
PROVIDERS: ATTEND Family Medicine
DX: N76.0 Acute vaginitis (principal)

== ENCOUNTER 2018-09-10 10:31 | Emergency (ER) | payer OTHER ==
[~2018-09-10] VITALS: Ht 157.5 cm; Wt 127.3 kg
[~2018-09-10 10:31] MED LIST changes: -VANC125C2 PO; +VANC125C3 PO
[2018-09-10] MEDS ORDERED: ONDANSETRON 4MG/2ML VIAL (J2405) IV ONE (11:00)
[2018-09-10] MEDS ORDERED: NS 1,000 ML IV ONE (11:00)
[2018-09-10] MEDS ORDERED: MORPHINE 2 MG/ML 1ML SYRINGE (J2270) IV ONE ×2 (11:00→13:00)
[2018-09-10 11:17] LABS: BASO % 0.2 % (0.0-1.0); EOS # 0.5 10^3/uL (0.0-0.50); EOS % 3.4 % (0.0-3.0); HEMATOCRIT 48.5 % (36.0-47.0); HEMOGLOBIN 15.8 g/dl (12.0-15.5); LYMPH # 1.1 10^3/uL (1.5-4.5); LYMPH % 7.2 % (24.0-44.0); MEAN CORPUSCULAR HEMOGLOBIN 29.3 pg (27.0-33.0); MEAN CORPUSCULAR HGB CONC 32.6 g/dl (32.0-36.5); MEAN CORPUSCULAR VOLUME 89.8 fl (80.0-96.0); MONO # 0.8 10^3/uL (0.0-0.8); NEUTROPHILS # 13.4 10^3/uL (1.8-7.7); NEUTROPHILS % 83.8 % (36.0-66.0); PLATELET COUNT, AUTOMATED 346 10^3/uL (150-450); WHITE BLOOD COUNT 15.9 10^3/uL (4.0-10.0)
[2018-09-10 11:48] LABS: ALBUMIN 3.6 GM/DL (3.2-5.2); ALT/SGPT 37 U/L (12-78); BILIRUBIN,DIRECT < 0.1 MG/DL (0.0-0.2); BILIRUBIN,TOTAL 0.3 MG/DL (0.2-1.0); BLOOD UREA NITROGEN 10 MG/DL (7-18); CALCIUM LEVEL 8.8 MG/DL (8.5-10.1); CARBON DIOXIDE LEVEL 26 MEQ/L (21-32); CHLORIDE LEVEL 106 MEQ/L (98-107); CREATININE FOR GFR 0.79 MG/DL (0.55-1.30); GLOMERULAR FILTRATION RATE > 60.0 (>60); GLUCOSE, FASTING 132 MG/DL (70-100); LIPASE 179 U/L (73-393); POTASSIUM SERUM 4.3 MEQ/L (3.5-5.1); SODIUM LEVEL 141 MEQ/L (136-145); TOTAL PROTEIN 7.3 GM/DL (6.4-8.2)
[2018-09-10] MEDS: GASTROGRAFIN SOLUTION 30ML PO SCH ×2 (12:45→13:15)
[2018-09-10] MEDS ORDERED: ISOVUE-370 76% 100ML VIAL (Q9967) As Ordered ONE (12:45)
[2018-09-10 14:35] VITALS: BP 131/75
--- NOTE | 2018-09-10 19:28 | ECGEPIP ---
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
--- NOTE | 2018-09-11 10:18 | REP ---
CT ABDOMEN AND PELVIS WITH IV AND ORAL CONTRAST: HISTORY: Abdomen pain and diarrhea. Comparison CT study May 31, 2017. 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 The lung bases are clear. The liver and spleen are normal in size homogeneous in texture. There is evidence of mild fatty infiltration of the liver as before. No abnormalities noted in the gallbladder. The pancreas is unremarkable. No adrenal lesion is seen. The kidneys enhance symmetrically and are morphologically intact. There is an intrarenal calculus in the upper pole of the right kidney 2-3 mm in size. No hydronephrosis is seen on either side. Normal caliber aorta is seen. No retroperitoneal mass or adenopathy is observed. Normal appendix is seen in the right mid abdomen just under the liver. Small and large intestinal bowel loops are normal in the abdomen and pelvis. No uterine or ovarian abnormality is observed. There are scattered normal-sized mesenteric lymph nodes. No change from comparison study. No abdominal wall defect is seen. Bone window settings show some degenerative spondylosis changes in the lumbar spine. No bony destructive lesion is seen. IMPRESSION: Mild fatty infiltration of the liver. No acute intra-abdominal abnormality. Electronically Signed by Alirio Ramirez MD 09/11/2018 10:28 A
[2018-09-12] MEDS ORDERED: TRUBIOTIC PO (14:15)
[2018-09-12] MEDS ORDERED: SAXE1INJ SC (14:15)
[2018-09-12] MEDS ORDERED: VITA50005 PO (14:15)
[2018-09-12] MEDS ORDERED: CETI10TA4 PO (14:15)
[2018-09-12] MEDS ORDERED: VITAD1000T PO (14:15)
[2018-09-13] MEDS ORDERED: DIFI200T PO (11:47)
== END 2018-09-10 15:09 | disposition home or self-care (01) ==
LOC: M ED 10:31
DX: K52.9 Noninfective gastroenteritis and colitis, unspecified (principal); K76.0 Fatty (change of) liver, not elsewhere classified; J45.909 Unspecified asthma, uncomplicated; E56.9 Vitamin deficiency, unspecified; Z88.0 Allergy status to penicillin; Z79.818 Long term (current) use of other agents affecting estrogen receptors and estrogen levels; Z79.899 Other long term (current) drug therapy
CPT/HCPCS: 74177; 80048; 80076; 83605; 83690; 85025; 93005; 96374; 96375; 96376; 99284; J2270; J2405; Q9963; Q9967

== ENCOUNTER → 2018-10-21 | Outpatient (CLI) | payer OTHER ==
[~2018-10-21] MED LIST changes: +CETI10TA4 PO; +DIFI200T PO; +SAXE1INJ SC; +TRUBIOTIC PO; +VITA50005 PO; +VITAD1000T PO
[2018-10-21 18:18] LABS: BASO # 0.1 10^3/uL (0.0-0.2); BASO % 0.9 % (0.0-1.0); EOS # 0.7 10^3/uL (0.0-0.50); EOS % 7.2 % (0.0-3.0); HEMATOCRIT 44.1 % (36.0-47.0); HEMOGLOBIN 14.2 g/dl (12.0-15.5); LYMPH % 20.1 % (24.0-44.0); MEAN CORPUSCULAR HEMOGLOBIN 29.2 pg (27.0-33.0); MEAN CORPUSCULAR HGB CONC 32.2 g/dl (32.0-36.5); MEAN CORPUSCULAR VOLUME 90.6 fl (80.0-96.0); MONO # 0.6 10^3/uL (0.0-0.8); MONO % 6.2 % (0.0-5.0); NEUTROPHILS # 6.6 10^3/uL (1.8-7.7); NEUTROPHILS % 65.1 % (36.0-66.0); PLATELET COUNT, AUTOMATED 329 10^3/uL (150-450); RED BLOOD COUNT 4.87 10^6/uL (4.00-5.40); WHITE BLOOD COUNT 10.2 10^3/uL (4.0-10.0)
[2018-10-21 18:28] LABS: ALBUMIN 3.6 GM/DL (3.2-5.2); ALT/SGPT 38 U/L (12-78); BILIRUBIN,TOTAL 0.3 MG/DL (0.2-1.0); BLOOD UREA NITROGEN 8 MG/DL (7-18); CALCIUM LEVEL 9.1 MG/DL (8.5-10.1); CARBON DIOXIDE LEVEL 25 MEQ/L (21-32); CHLORIDE LEVEL 106 MEQ/L (98-107); CHOLESTEROL LEVEL 166 MG/DL (<200); CHOLESTEROL RISK RATIO 3.458 (<5); CREATININE FOR GFR 0.84 MG/DL (0.55-1.30); FREE T4 0.93 NG/DL (0.76-1.46); GLOMERULAR FILTRATION RATE > 60.0 (>60); GLUCOSE, FASTING 83 MG/DL (70-100); HDL CHOLESTEROL 48 MG/DL (>40); LDL CHOLESTEROL 96 MG/DL (<100); NON-HDL-C 118 MG/DL; POTASSIUM SERUM 4.2 MEQ/L (3.5-5.1); SODIUM LEVEL 140 MEQ/L (136-145); TOTAL PROTEIN 6.9 GM/DL (6.4-8.2); TRIGLYCERIDES LEVEL 108 MG/DL (<150)
[2018-10-21 18:45] LABS: HEMOGLOBIN A1c 5.9 %
== END ==
LOC: M WUC 10:45
PROVIDERS: ATTEND Physician Assistant
DX: E11.9 Type 2 diabetes mellitus without complications (principal)

== ENCOUNTER → 2018-10-26 | Outpatient (REF) | payer OTHER ==
[~2018-10-26] MED LIST changes: +VANC125C3
== END ==
LOC: M LAB REF 17:08
PROVIDERS: ATTEND Family Medicine
DX: R19.7 Diarrhea, unspecified (principal)

== ENCOUNTER 2018-11-01 09:54 | Emergency (ER) | payer OTHER ==
[~2018-11-01] VITALS: Ht 157.5 cm; Wt 130.9 kg
[~2018-11-01 09:54] MED LIST changes: -VANC125C3
[2018-11-01] MEDS ORDERED: VANC125C3 (10:03)
[2018-11-01 11:52] LABS: BASO # 0.1 10^3/uL (0.0-0.2); BASO % 0.5 % (0.0-1.0); EOS # 0.4 10^3/uL (0.0-0.50); HEMATOCRIT 44.9 % (36.0-47.0); HEMOGLOBIN 14.7 g/dl (12.0-15.5); LYMPH # 1.2 10^3/uL (1.5-4.5); LYMPH % 9.7 % (24.0-44.0); MEAN CORPUSCULAR HEMOGLOBIN 29.7 pg (27.0-33.0); MEAN CORPUSCULAR HGB CONC 32.7 g/dl (32.0-36.5); MEAN CORPUSCULAR VOLUME 90.7 fl (80.0-96.0); MONO # 0.6 10^3/uL (0.0-0.8); MONO % 4.4 % (0.0-5.0); NEUTROPHILS # 10.4 10^3/uL (1.8-7.7); NEUTROPHILS % 81.9 % (36.0-66.0); PLATELET COUNT, AUTOMATED 353 10^3/uL (150-450); RED BLOOD COUNT 4.95 10^6/uL (4.00-5.40); WHITE BLOOD COUNT 12.7 10^3/uL (4.0-10.0)
[2018-11-01 12:20] LABS: ALBUMIN 3.5 GM/DL (3.2-5.2); ALT/SGPT 80 U/L (12-78); BILIRUBIN,DIRECT 0.2 MG/DL (0.0-0.2); BILIRUBIN,TOTAL 0.4 MG/DL (0.2-1.0); BLOOD UREA NITROGEN 11 MG/DL (7-18); CALCIUM LEVEL 9.5 MG/DL (8.5-10.1); CARBON DIOXIDE LEVEL 29 MEQ/L (21-32); CHLORIDE LEVEL 103 MEQ/L (98-107); CREATININE FOR GFR 0.82 MG/DL (0.55-1.30); GLOMERULAR FILTRATION RATE > 60.0 (>60); GLUCOSE, FASTING 141 MG/DL (70-100); POTASSIUM SERUM 4.4 MEQ/L (3.5-5.1); SODIUM LEVEL 139 MEQ/L (136-145); TOTAL PROTEIN 7.7 GM/DL (6.4-8.2)
[2018-11-01] MEDS ORDERED: NS 1,000 ML IV ONE ×2 (12:45→14:15)
--- NOTE | 2018-11-01 12:55 | REP ---
KUB ABDOMEN AND PELVIS: Three KUB films of abdomen and pelvis performed. Bowel gas pattern is normal with no evidence of bowel obstruction. Mild scattered air and material is seen throughout the colon. There are no dilated small bowel loops. Multiple phleboliths are seen in the pelvis. There are mild degenerative changes of the spine. IMPRESSION: Unremarkable KUB study. Electronically Signed by Atul Fofana MD 11/02/2018 09:01 A
--- NOTE | 2018-11-01 14:19 | REP ---
RIGHT UPPER QUADRANT ULTRASOUND: Real-time sonographic evaluation of the right upper quadrant performed. No gallstones are seen. There is a polyp in the gallbladder measuring 8 mm. There is no gallbladder wall thickening or pericholecystic fluid. There is no intrahepatic or extrahepatic biliary dilatation, common bile duct measuring 5 mm. Liver demonstrates diffuse increased echotexture suggesting diffuse fibrofatty infiltration. No gross liver or pancreatic mass is seen. The pancreas is not optimally seen due to overlying bowel gas. Right kidney demonstrates no hydronephrosis with normal size 11.7 cm in length. IMPRESSION: No gallstones, gallbladder wall thickening, pericholecystic fluid or biliary dilatation. There is an 8 mm polyp in the gallbladder. Recommend followup ultrasound in 6-12 months to insure stability. Diffuse fibrofatty infiltration of the liver. Electronically Signed by Atul Fofana MD 11/02/2018 09:10 A
[2018-11-01 16:01] VITALS: BP 155/90
--- NOTE | 2018-11-02 19:42 | ED PDOC ---
Post-Departure Follow-Up us report faxed to dr misbah horton for fu Swati Stone MD Nov 02, 2018 19:42
== END 2018-11-01 16:03 | disposition home or self-care (01) ==
LOC: M ED 09:54
DX: A04.72 Enterocolitis due to Clostridium difficile, not specified as recurrent (principal); E86.0 Dehydration; K76.0 Fatty (change of) liver, not elsewhere classified; K82.4 Cholesterolosis of gallbladder; Z79.899 Other long term (current) drug therapy; Z88.0 Allergy status to penicillin

== ENCOUNTER 2019-05-04 08:53 | Emergency (ER) | payer OTHER ==
[~2019-05-04] VITALS: Ht 157.5 cm; Wt 136.9 kg
[~2019-05-04 08:53] MED LIST changes: +CHOL100029 PO; +VANC125C3; -VITAD1000T PO
[2019-05-04 12:30] VITALS: BP 125/58
== END 2019-05-04 13:03 | disposition home or self-care (01) ==
LOC: M ED 08:53
DX: L02.31 Cutaneous abscess of buttock (principal); E11.9 Type 2 diabetes mellitus without complications; Z88.0 Allergy status to penicillin; Z79.899 Other long term (current) drug therapy

== ENCOUNTER 2019-05-06 09:25 | Emergency (ER) | payer OTHER ==
[~2019-05-06] VITALS: Ht 157.5 cm; Wt 133.2 kg
[2019-05-06 09:36] VITALS: BP 158/86
[2019-05-06] MEDS ORDERED: D 50CAP3 PO (09:41)
== END 2019-05-06 10:29 | disposition home or self-care (01) ==
LOC: M ED 09:25
DX: L02.31 Cutaneous abscess of buttock (principal); E11.9 Type 2 diabetes mellitus without complications; Z88.0 Allergy status to penicillin; Z79.899 Other long term (current) drug therapy

== ENCOUNTER → 2019-06-01 | Outpatient (REF) | payer OTHER ==
[~2019-06-01] MED LIST changes: +D 50CAP3 PO
== END ==
LOC: M LAB LCGH 11:45
PROVIDERS: ATTEND Obstetrics & Gynecology
DX: Z12.4 Encounter for screening for malignant neoplasm of cervix (principal)
CPT/HCPCS: 87624; G0123

== ENCOUNTER → 2019-06-09 | Outpatient (CLI) | payer OTHER ==
[2019-06-09 18:09] LABS: BASO # 0.1 10^3/uL (0.0-0.2); BASO % 0.9 % (0.0-1.0); EOS # 0.4 10^3/uL (0.0-0.5); EOS % 4.3 % (0.0-3.0); HEMATOCRIT 46.1 % (36.0-47.0); HEMOGLOBIN 14.5 g/dl (12.0-15.5); LYMPH # 1.6 10^3/uL (1.5-5.0); LYMPH % 17.5 % (24.0-44.0); MEAN CORPUSCULAR HEMOGLOBIN 29.2 pg (27.0-33.0); MEAN CORPUSCULAR HGB CONC 31.5 g/dl (32.0-36.5); MEAN CORPUSCULAR VOLUME 92.8 fl (80.0-96.0); MONO # 0.6 10^3/uL (0.0-0.8); MONO % 6.8 % (0.0-5.0); NEUTROPHILS # 6.4 10^3/uL (1.5-8.5); NEUTROPHILS % 70.2 % (36.0-66.0); PLATELET COUNT, AUTOMATED 346 10^3/uL (150-450); RED BLOOD COUNT 4.97 10^6/uL (4.00-5.40); WHITE BLOOD COUNT 9.1 10^3/uL (4.0-10.0)
[2019-06-09 18:13] LABS: ALBUMIN 3.7 GM/DL (3.2-5.2); ALT/SGPT 26 U/L (12-78); BILIRUBIN,TOTAL 0.5 MG/DL (0.2-1.0); BLOOD UREA NITROGEN 11 MG/DL (7-18); CALCIUM LEVEL 8.9 MG/DL (8.5-10.1); CARBON DIOXIDE LEVEL 25 MEQ/L (21-32); CHLORIDE LEVEL 106 MEQ/L (98-107); CREATININE FOR GFR 1.02 MG/DL (0.55-1.30); GLOMERULAR FILTRATION RATE > 60.0 (>60); GLUCOSE, FASTING 101 MG/DL (70-100); POTASSIUM SERUM 4.4 MEQ/L (3.5-5.1); SODIUM LEVEL 140 MEQ/L (136-145); TOTAL PROTEIN 7.6 GM/DL (6.4-8.2)
[2019-06-09 18:26] LABS: HEMOGLOBIN A1c 5.7 %
[2019-06-11 13:25] LABS: TOTAL 25(OH) VITAMIN D 58.5 NG/ML (30.0-100.0)
== END ==
LOC: M WUC 11:14
PROVIDERS: ATTEND Physician Assistant
DX: E55.9 Vitamin D deficiency, unspecified (principal); R73.03 Prediabetes

== ENCOUNTER → 2019-07-16 | Outpatient (CLI) | payer OTHER ==
[~2019-07-16] MED LIST changes: +NORG1TAB37 PO; -TRI-1TAB5 PO
--- NOTE | 2019-07-16 12:03 | REP ---
Right quadrant sonography: History: Cholesterolosis of the gallbladder. Comparison sonography November 01, 2018 showed a 8 mm gallbladder polyp. Sonographic findings: Scanning through right upper quadrant of the abdomen demonstrates a normal sized thin-walled gallbladder. There are two echogenic foci in the dependent portion the gallbladder which did not move with changes in position. These are 10 and 7 mm in greatest diameter respectively. They may be aggregates of sludge or polyp. The previous sonogram showed one such echogenic structure. Sludge aggregates are felt to be more likely. Common bile duct is normal measuring 0.4 cm in greatest diameter. No gallbladder wall thickening or pericholecystic fluid is seen. The liver is somewhat hyperechoic with decreased insonation consistent with fatty infiltration. There are some areas of fat sparing adjacent to the gallbladder. No focal liver mass lesion is seen. Limited views of the pancreas are unremarkable. There is no evidence of ascites or right renal abnormality. Right kidney measures 12.4 x 6.6 x 4.9 cm. Impression: Evidence of fatty infiltration of the liver. Two non-shadowing echogenic foci in the dependent portion the gallbladder consistent with sludge aggregates. No definite gallstone. Electronically Signed by Alirio Ramirez MD 07/16/2019 02:23 P
== END ==
LOC: M RAD 09:35
PROVIDERS: ATTEND Family Medicine
DX: K82.4 Cholesterolosis of gallbladder (principal)

== ENCOUNTER → 2020-01-04 | Outpatient (REF) | payer OTHER ==
[2020-02-18 10:57] LABS: BLOOD UREA NITROGEN 12 MG/DL (7-18); CALCIUM LEVEL 9.1 MG/DL (8.5-10.1); CARBON DIOXIDE LEVEL 27 MEQ/L (21-32); CHLORIDE LEVEL 105 MEQ/L (98-107); CREATININE FOR GFR 0.92 MG/DL (0.55-1.30); GLOMERULAR FILTRATION RATE > 60.0 (>60); GLUCOSE, FASTING 111 MG/DL (70-100); HEMOGLOBIN A1c 5.9 %; POTASSIUM SERUM 4.7 MEQ/L (3.5-5.1); SODIUM LEVEL 137 MEQ/L (136-145); TOTAL 25(OH) VITAMIN D 59.1 NG/ML (30.0-100.0)
== END ==
LOC: M PLALAB 16:32
PROVIDERS: ATTEND Physician Assistant
DX: E55.9 Vitamin D deficiency, unspecified (principal); E11.9 Type 2 diabetes mellitus without complications

== ENCOUNTER → 2020-04-19 | Outpatient (CLI) | payer OTHER ==
[2020-04-20 07:04] LABS: BASO # 0.1 10^3/uL (0.0-0.2); BASO % 0.7 % (0.0-1.0); EOS # 0.9 10^3/uL (0.0-0.5); EOS % 12.2 % (0.0-3.0); HEMATOCRIT 49.6 % (36.0-47.0); HEMOGLOBIN 14.7 g/dl (12.0-15.5); LYMPH # 1.3 10^3/uL (1.5-5.0); LYMPH % 18.5 % (24.0-44.0); MEAN CORPUSCULAR HEMOGLOBIN 28.2 pg (27.0-33.0); MEAN CORPUSCULAR HGB CONC 29.6 g/dl (32.0-36.5); MEAN CORPUSCULAR VOLUME 95.2 fl (80.0-96.0); MONO # 0.5 10^3/uL (0.0-0.8); MONO % 6.9 % (0.0-5.0); NEUTROPHILS # 4.3 10^3/uL (1.5-8.5); NEUTROPHILS % 61.4 % (36.0-66.0); PLATELET COUNT, AUTOMATED 307 10^3/uL (150-450); RED BLOOD COUNT 5.21 10^6/uL (4.00-5.40)
[2020-04-20 07:14] LABS: ALBUMIN 3.5 GM/DL (3.2-5.2); ALT/SGPT 83 U/L (12-78); BILIRUBIN,TOTAL 0.5 MG/DL (0.2-1.0); BLOOD UREA NITROGEN 7 MG/DL (7-18); CARBON DIOXIDE LEVEL 29 MEQ/L (21-32); CHLORIDE LEVEL 104 MEQ/L (98-107); CREATININE FOR GFR 0.95 MG/DL (0.55-1.30); FREE T4 1.01 NG/DL (0.76-1.46); GLOMERULAR FILTRATION RATE > 60.0 (>60); GLUCOSE, FASTING 122 MG/DL (70-100); POTASSIUM SERUM 4.4 MEQ/L (3.5-5.1); SODIUM LEVEL 139 MEQ/L (136-145); TOTAL PROTEIN 7.6 GM/DL (6.4-8.2)
[2020-04-20 07:27] LABS: HEMOGLOBIN A1c 6.4 %
[2020-04-21 10:19] LABS: TOTAL 25(OH) VITAMIN D 60.2 NG/ML (30.0-100.0)
== END ==
LOC: M WUC 11:11
PROVIDERS: ATTEND Family Medicine
DX: E11.9 Type 2 diabetes mellitus without complications (principal); E55.9 Vitamin D deficiency, unspecified

== ENCOUNTER → 2020-07-17 | Outpatient (CLI) | payer OTHER ==
[2020-07-17 14:52] LABS: ALBUMIN 3.4 GM/DL (3.2-5.2); ALT/SGPT 50 U/L (12-78); BILIRUBIN,TOTAL 0.4 MG/DL (0.2-1.0); BLOOD UREA NITROGEN 9 MG/DL (7-18); CALCIUM LEVEL 9.3 MG/DL (8.5-10.1); CARBON DIOXIDE LEVEL 32 MEQ/L (21-32); CHLORIDE LEVEL 104 MEQ/L (98-107); CREATININE FOR GFR 0.82 MG/DL (0.55-1.30); GLOMERULAR FILTRATION RATE > 60.0 (>60); GLUCOSE, FASTING 103 MG/DL (70-100); POTASSIUM SERUM 4.8 MEQ/L (3.5-5.1); SODIUM LEVEL 140 MEQ/L (136-145); TOTAL PROTEIN 7.3 GM/DL (6.4-8.2)
[2020-07-17 15:01] LABS: MALB URINE SIEMENS 14.2 MG/L; MAU/CREAT RATIO 9.4 MCG/MG (0.0-30.0)
[2020-07-17 15:13] LABS: HEMOGLOBIN A1c 6.1 %
== END ==
LOC: M PLALAB 11:44
PROVIDERS: ATTEND Family Medicine
DX: E11.9 Type 2 diabetes mellitus without complications (principal)

== ENCOUNTER → 2020-08-20 | Outpatient (REF) | payer OTHER | LOC: M LAB REF 18:44 | PROVIDERS: ATTEND Family Medicine | DX: B37.3 Candidiasis of vulva and vagina (principal); L72.3 Sebaceous cyst ==

== ENCOUNTER → 2020-10-13 | Outpatient (CLI) | payer OTHER ==
[2020-10-13 20:47] LABS: ALBUMIN 3.6 GM/DL (3.2-5.2); ALT/SGPT 52 U/L (12-78); BILIRUBIN,TOTAL 0.4 MG/DL (0.2-1.0); BLOOD UREA NITROGEN 9 MG/DL (7-18); CALCIUM LEVEL 9.1 MG/DL (8.5-10.1); CARBON DIOXIDE LEVEL 30 MEQ/L (21-32); CHLORIDE LEVEL 105 MEQ/L (98-107); CREATININE FOR GFR 0.86 MG/DL (0.55-1.30); GLOMERULAR FILTRATION RATE > 60.0 (>58); GLUCOSE, FASTING 81 MG/DL (70-100); POTASSIUM SERUM 4.3 MEQ/L (3.5-5.1); SODIUM LEVEL 139 MEQ/L (136-145); TOTAL PROTEIN 7.2 GM/DL (6.4-8.2)
== END ==
LOC: M WUC 15:06
PROVIDERS: ATTEND Physician Assistant
DX: E11.9 Type 2 diabetes mellitus without complications (principal)

== ENCOUNTER → 2020-10-20 | Outpatient (REF) | payer OTHER | LOC: M LAB REF 16:50 | PROVIDERS: ATTEND Family Medicine | DX: N76.0 Acute vaginitis (principal) ==

== ENCOUNTER → 2021-03-03 | Outpatient (REF) | payer OTHER | LOC: M LAB REF 17:12 | PROVIDERS: ATTEND Family Medicine | DX: N76.0 Acute vaginitis (principal) ==

== ENCOUNTER → 2021-03-18 | Outpatient (REF) | payer OTHER | LOC: M LAB REF 17:09 | PROVIDERS: ATTEND Family Medicine | DX: N76.0 Acute vaginitis (principal) ==

== ENCOUNTER → 2021-03-26 | Outpatient (CLI) | payer OTHER ==
--- NOTE | 2021-03-26 13:36 | REP ---
INDICATION: UNSPECIFIED LUMP UPPER INNER QUAD RIGHT BREAST. COMPARISON: This is the patient's baseline mammogram. TECHNIQUE: 2D and 3D cc and MLO views of both breasts were obtained. Targeted bilateral breast ultrasound was performed. FINDINGS: The Volpara volumetric breast density pattern is a, the breasts are almost entirely fatty. There is a radiopaque triangle marking the location of the palpable abnormality in the right breast. There is no mammographic correlate to the palpable abnormality in the right breast. In the posterior 3rd of the right breast directly deep to, and lateral the nipple, seen only on the MLO view, there is an oval, circumscribed, isodense mass measuring 9 mm in diameter. In the posterior 3rd of the left breast deep to and above and lateral to the nipple, seen only on MLO view, there is an oval, circumscribed, isodense mass measuring 3 mm in diameter. Bilateral breast ultrasound: Right breast: 8 o'clock, 8 cm deep to the nipple, 6 x 4 mm, intramammary lymph node. Left breast: 3 o'clock, 10 cm deep to the nipple, 7 x 6 mm, intramammary lymph node. IMPRESSION: BIRADS/ACR : Category 2: Benign finding. Benign intramammary lymph nodes, bilaterally. There is no mammographic or ultrasound correlate to the palpable abnormality in the right breast. This patient's Tyrer-Cuzick lifetime breast cancer risk assessment score is 13.5%. This mammogram was interpreted with the aid of an FDA-approved computer-aided detection system. The patient states she had a clinical breast exam in February 2021. The patient letter being requested is M2. RECOMMENDATION: Repeat screening mammography recommended 1 year (for women over 40). <Electronically signed by Dev Lowe > 03/26/21 [id number]
--- NOTE | 2021-03-26 17:02 | REP ---
INDICATION: Right breast lump. COMPARISON: This is the patient's baseline mammogram. TECHNIQUE: 2D and 3D cc and MLO views of both breasts were obtained. Targeted bilateral breast ultrasound was performed. FINDINGS: The Volpara volumetric breast density pattern is a, the breasts are almost entirely fatty. There is a radiopaque triangle marking the location of the palpable abnormality in the right breast. There is no mammographic correlate to the palpable abnormality in the right breast. In the posterior 3rd of the right breast directly deep to, and lateral the nipple, seen only on the MLO view, there is an oval, circumscribed, isodense mass measuring 9 mm in diameter. In the posterior 3rd of the left breast deep to and above and lateral to the nipple, seen only on MLO view, there is an oval, circumscribed, isodense mass measuring 3 mm in diameter. Bilateral breast ultrasound: Right breast: 8 o'clock, 8 cm deep to the nipple, 6 x 4 mm, intramammary lymph node. Left breast: 3 o'clock, 10 cm deep to the nipple, 7 x 6 mm, intramammary lymph node. IMPRESSION: BIRADS/ACR : Category 2: Benign finding. Benign intramammary lymph nodes, bilaterally. There is no mammographic or ultrasound correlate to the palpable abnormality in the right breast. This patient's Tyrer-Cuzick lifetime breast cancer risk assessment score is 13.5%. This mammogram was interpreted with the aid of an FDA-approved computer-aided detection system. The patient states she had a clinical breast exam in February 2021. The patient letter being requested is M2. RECOMMENDATION: Follow-up screening mammogram in 1 year. <Electronically signed by Dev Lowe > 03/26/21 [id number]
== END ==
LOC: M WHC 09:10
PROVIDERS: ATTEND Family Medicine
DX: N63.12 Unspecified lump in the right breast, upper inner quadrant (principal); Z12.31 Encounter for screening mammogram for malignant neoplasm of breast
CPT/HCPCS: 76642; 77066; G0279

== ENCOUNTER → 2021-08-13 | Outpatient (REF) | payer OTHER | LOC: M LAB REF 17:02 | PROVIDERS: ATTEND Nurse Practitioner Adult Health | DX: N76.0 Acute vaginitis (principal) ==

== ENCOUNTER → 2021-09-11 | Outpatient (CLI) | payer OTHER | LOC: M PLARAD 07:46 | PROVIDERS: ATTEND Orthopaedic Surgery Hand Surgery | DX: M25.562 Pain in left knee (principal) ==

== ENCOUNTER → 2022-08-06 | Outpatient (CLI) | payer OTHER | LOC: M WHC 10:42 | PROVIDERS: ATTEND Nurse Practitioner Adult Health | DX: Z12.31 Encounter for screening mammogram for malignant neoplasm of breast (principal) ==

== ENCOUNTER → 2023-11-04 | Outpatient (CLI) | payer OTHER | LOC: M WHC 09:36 | PROVIDERS: ATTEND Nurse Practitioner Adult Health | DX: Z12.31 Encounter for screening mammogram for malignant neoplasm of breast (principal) ==

== ENCOUNTER → 2024-07-24 | Outpatient (CLI) | payer OTHER ==
[~2024-07-24] MED LIST changes: +VANC125C13; +VANC125C13 PO; -VANC125C3; -VANC125C3 PO
[2024-07-24 16:26] LABS: BASO # 0.1 10^3/uL (0.0-0.2); BASO % 0.7 % (0.0-1.0); EOS # 0.7 10^3/uL (0.0-0.5); EOS % 5.7 % (0.0-3.0); HEMOGLOBIN 13.8 g/dl (12.0-15.5); LYMPH # 2.5 10^3/uL (1.5-5.0); LYMPH % 20.9 % (24.0-44.0); MEAN CORPUSCULAR HEMOGLOBIN 29.9 pg (27.0-33.0); MEAN CORPUSCULAR HGB CONC 32.9 g/dl (32.0-36.5); MEAN CORPUSCULAR VOLUME 90.9 fl (80.0-96.0); MONO # 0.7 10^3/uL (0.0-0.8); MONO % 5.7 % (2.0-8.0); NEUTROPHILS # 7.8 10^3/uL (1.5-8.5); NEUTROPHILS % 66.6 % (36.0-66.0); PLATELET COUNT, AUTOMATED 356 10^3/uL (150-450); RED BLOOD COUNT 4.62 10^6/uL (4.00-5.40); WHITE BLOOD COUNT 11.7 10^3/uL (4.0-10.0)
[2024-07-24 16:45] LABS: HEMOGLOBIN A1c 5.2 % (4.0-6.0)
[2024-07-24 16:53] LABS: MAU/CREAT RATIO 1.7 MCG/MG (0.0-30.0)
[2024-07-24 16:54] LABS: ALBUMIN 3.6 G/DL (3.2-5.2); ALKALINE PHOSPHATASE 78 U/L (35-104); ALT/SGPT 17 U/L (7.0-40); AST/SGOT 17 U/L (<34); BILIRUBIN,TOTAL 0.4 MG/DL (0.3-1.2); BLOOD UREA NITROGEN 12 MG/DL (9-23); CALCIUM LEVEL 8.9 MG/DL (8.5-10.1); CARBON DIOXIDE LEVEL 25 MMOL/L (20-31); CHLORIDE LEVEL 103 MMOL/L (98-107); CHOLESTEROL LEVEL 165 MG/DL (<200); CHOLESTEROL RISK RATIO 3.26 (<5); CREATININE FOR GFR 0.79 MG/DL (0.55-1.30); GLOMERULAR FILTRATION RATE > 60.0 (>58); GLUCOSE, FASTING 77 MG/DL (60-100); HDL CHOLESTEROL 50.6 MG/DL (>40); LDL CHOLESTEROL 98.4 MG/DL (<100); NON-HDL-C 114.4 MG/DL; POTASSIUM SERUM 4.4 MMOL/L (3.5-5.1); SODIUM LEVEL 139 MMOL/L (136-145); TOTAL PROTEIN 7.4 G/DL (5.7-8.2); TRIGLYCERIDES LEVEL 80 MG/DL (<150)
[2024-07-24 16:58] LABS: FREE T4 1.14 NG/DL (0.89-1.76); THYROID STIMULATING HORMONE 1.418 uIU/ML (0.55-4.78)
== END ==
LOC: M LAB 15:39
PROVIDERS: ATTEND Nurse Practitioner Adult Health
DX: E11.9 Type 2 diabetes mellitus without complications (principal); E55.9 Vitamin D deficiency, unspecified

== ENCOUNTER → 2025-03-12 | Outpatient (CLI) | payer OTHER ==
[~2025-03-12] MED LIST changes: +SLOW1TAB3 PO; -SLOWTAB2 PO
== END ==
LOC: M WHC 12:41
PROVIDERS: ATTEND Nurse Practitioner Adult Health
DX: Z12.31 Encounter for screening mammogram for malignant neoplasm of breast (principal)

== ENCOUNTER 2025-04-07 06:53 | Emergency (ER) | payer OTHER ==
[~2025-04-07] VITALS: Ht 157.5 cm; Wt 121.5 kg
[2025-04-07] MEDS ORDERED: MYLA1SUS PO (06:59)
[2025-04-07] MEDS ORDERED: IBUP200C28 PO (06:59)
[2025-04-07 07:23] LABS: KETONE, URINE AUTO RFX NEGATIVE (NEGATIVE); LEUKOCYTE ESTERASE UR AUTO RFX NEGATIVE (NEGATIVE); MUCUS, URINE RFX SMALL (NEGATIVE); NITRITE, URINE AUTO RFX NEGATIVE (NEGATIVE); RBC, URINE AUTO RFX TNTC /HPF (0-3); SQUAM EPITHELIAL CELL UR AURFX 4 /HPF (0-6); WBC, URINE AUTO RFX 4 /HPF (0-3)
[2025-04-07 09:09] LABS: BASO # 0.1 10^3/uL (0.0-0.2); BASO % 0.8 % (0.0-1.0); EOS # 0.4 10^3/uL (0.0-0.5); EOS % 3.0 % (0.0-3.0); LYMPH # 1.0 10^3/uL (1.5-5.0); LYMPH % 8.0 % (24.0-44.0); MONO # 0.5 10^3/uL (0.0-0.8); MONO % 4.3 % (2.0-8.0); NEUTROPHILS # 10.2 10^3/uL (1.5-8.5); NEUTROPHILS % 83.6 % (36.0-66.0); PLATELET COUNT, AUTOMATED 363 10^3/uL (150-450)
[2025-04-07] MEDS: NS (Normal Saline) 0.9% 1,000 ML IV ONE (09:14)
[2025-04-07 09:33] LABS: HCG, SERUM QUALITATIVE NEGATIVE (NEGATIVE)
[2025-04-07 09:34] LABS: ALT/SGPT 15 U/L (7.0-40); AST/SGOT 15 U/L (<34); CALCIUM LEVEL 9.4 MG/DL (8.5-10.1); CARBON DIOXIDE LEVEL 29 MMOL/L (20-31); CHLORIDE LEVEL 104 MMOL/L (98-107); CREATININE FOR GFR 0.83 MG/DL (0.55-1.30); GLOMERULAR FILTRATION RATE 89.1 (>58); POTASSIUM SERUM 4.5 MMOL/L (3.5-5.1); SODIUM LEVEL 141 MMOL/L (136-145)
[2025-04-07] MEDS ORDERED: TAMS-18 PO (10:41)
[2025-04-07] MEDS ORDERED: BACT800T5 PO (10:50)
[2025-04-07 10:52] VITALS: BP 143/91; TEMP 97.4; O2SAT 99
== END 2025-04-07 11:15 | disposition home or self-care (01) ==
LOC: M ED 06:53
DX: N13.30 Unspecified hydronephrosis (principal); N20.2 Calculus of kidney with calculus of ureter; R91.1 Solitary pulmonary nodule; K57.30 Diverticulosis of large intestine without perforation or abscess without bleeding; N23 Unspecified renal colic; K80.20 Calculus of gallbladder without cholecystitis without obstruction; E11.9 Type 2 diabetes mellitus without complications; F12.10 Cannabis abuse, uncomplicated; J45.909 Unspecified asthma, uncomplicated; Z88.0 Allergy status to penicillin; Z79.52 Long term (current) use of systemic steroids; Z79.899 Other long term (current) drug therapy; Z79.1 Long term (current) use of non-steroidal anti-inflammatories (NSAID)

== ENCOUNTER → 2025-05-20 | Outpatient (REF) | payer OTHER ==
[~2025-05-20] MED LIST changes: +BACT800T5 PO; +IBUP200C28 PO; +MYLA1SUS PO; +TAMS-18 PO
== END ==
LOC: M SMT 16:44
PROVIDERS: ATTEND Nurse Practitioner Family
DX: N20.0 Calculus of kidney (principal)